=== PATIENT | female | born 1970 | race Caucasian/White ===

== ENCOUNTER → 2017-01-28 | Outpatient (CLI) | payer OTHER ==
--- NOTE | 2017-02-01 08:20 | MM ---
Reason for exam: screening (asymptomatic). Last mammogram was performed 1 year ago. History: Patient had first child at age 29. Took hormonal contraceptives for 16 years beginning at age 19. Physical Findings: A clinical breast exam by your physician is recommended on an annual basis and results should be correlated with mammographic findings. MG Screening Mammo w CAD Bilateral CC and MLO view(s) were taken. Prior study comparison: January 27, 2016, bilateral MG screening mammo w CAD. January 24, 2015, bilateral MG screening mammo w CAD. There are scattered fibroglandular densities. Stable distortion in the left outer region. No significant changes when compared with prior studies. ASSESSMENT: Benign, BI-RAD 2 RECOMMENDATION: Routine screening mammogram of both breasts in 1 year.
== END ==
LOC: RADMAMWWP 08:02
PROVIDERS: ATTEND Family Medicine
DX: Z12.31 Encounter for screening mammogram for malignant neoplasm of breast (principal)

== ENCOUNTER 2018-01-22 16:54 | Emergency (ER) | payer OTHER ==
--- NOTE | 2018-01-22 17:07 | ED ---
Psych HPI - General Source: patient, police, EMS, RN notes reviewed Mode of arrival: EMS - History of Present Illness MD Complaint: suicidal ideation, feels depressed <Tigre Rojas - Last Filed: 01/23/18 00:03> <Aimee Arriaga - Last Filed: 01/23/18 05:32> - General Stated Complaint: Psych Eval Time Seen by Provider: 01/22/18 16:54 - History of Present Illness Initial Comments: This is a 46-year-old female was brought in by EMS in police custody with complaints of depression and suicidal thoughts and ideation. 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 Officers that she wanted to say goodbye before she went on her vacation but she would never come back again. She did voice apparent suicidal thoughts and ideation. She was brought here for evaluation. Patient is not very forthcoming with information I did obtain information from 2 police officers and some from the patient's . No reports of alcohol or drug use no other medical problems reported patient did have abrasions on her right forearm she states she put their 2 weeks ago her last tetanus shot was a week ago. (Tigre Rojas) - Related Data Home Medications Medication Instructions Recorded Confirmed Citalopram Hydrobromide [CeleXA] 20 mg PO HS 01/22/18 01/22/18 Levothyroxine Sodium [Synthroid] 75 mcg PO HS 01/22/18 01/22/18 Allergies Allergy/AdvReac Type Severity Reaction Status Date / Time prednisone Allergy Rash/Hives Verified 01/22/18 17:24 Review of Systems ROS Other: All systems not noted in ROS Statement are negative. <Tigre Rojas - Last Filed: 01/23/18 00:03> ROS Other: All systems not noted in ROS Statement are negative. <Aimee Arriaga - Last Filed: 01/23/18 05:32> ROS Statement: Those systems with pertinent positive or pertinent negative responses have been documented in the HPI. General Exam General appearance: alert, in no apparent distress Head exam: Present: atraumatic, normocephalic, normal inspection Eye exam: Present: normal appearance, PERRL, EOMI. Absent: scleral icterus, conjunctival injection, periorbital swelling ENT exam: Present: normal exam, mucous membranes moist Neck exam: Present: normal inspection. Absent: tenderness, meningismus, lymphadenopathy Respiratory exam: Present: normal lung sounds bilaterally. Absent: respiratory distress, wheezes, rales, rhonchi, stridor Cardiovascular Exam: Present: regular rate, normal rhythm, normal heart sounds. Absent: systolic murmur, diastolic murmur, rubs, gallop, clicks GI/Abdominal exam: Present: soft, normal bowel sounds. Absent: distended, tenderness, guarding, rebound, rigid Extremities exam: Present: normal inspection, full ROM, normal capillary refill , other (Well-healed linear abrasions to the right volar forearm no evidence of infection. They appear to be healing well). Absent: tenderness, pedal edema, joint swelling, calf tenderness Back exam: Present: normal inspection Neurological exam: Present: alert, oriented X3, CN II-XII intact Psychiatric exam: Present: normal mood, depressed, suicidal ideation Skin exam: Present: warm, dry, intact, normal color. Absent: rash <Tigre Rojas - Last Filed: 01/23/18 00:03> <Aimee Arriaga - Last Filed: 01/23/18 05:32> - General Exam Comments Initial Comments: This a well-developed well-nourished awake alert oriented 3 female (Tigre Rojas) Course <Tigre Rojas - Last Filed: 01/23/18 00:03> <Aimee Arriaga - Last Filed: 01/23/18 05:32> Vital Signs 01/22/18 01/23/18 17:03 03:40 Temperature 99 F Pulse Rate 78 82 Respiratory 16 18 Rate Blood Pressure 141/99 131/84 O2 Sat by Pulse 100 98 Oximetry - Reevaluation(s) Reevaluation #1: 01/23/18 00:03 The patient's care will be endorsed to Dr. Arriaga at our shift change (Tigre Rojas) Medical Decision Making - Lab Data Result diagrams: 01/22/18 19:45 01/22/18 19:45 <Tigre Rojas - Last Filed: 01/23/18 00:03> - Lab Data Result diagrams: 01/22/18 19:45 01/22/18 19:45 <Aimee Arriaga - Last Filed: 01/23/18 05:32> - Medical Decision Making Patient care was signed out to me by Dr. Rojas, patient under a psychiatric evaluation for possible suicidal thoughts. Review the patient chart reveals that she does have just of of urinary tract infection. Patient does endorse some dysuria, she denies any possibility of sexually transmitted infection and does not want any further evaluation or pelvic exam. Patient does not have an IV in but is otherwise stable and I feel she is appropriate for treatment oral antibiotics. Keflex will be ordered. (Aimee Arriaga) - Lab Data Lab Results 01/22/18 01/22/18 01/22/18 Range/Units 19:45 19:45 20:40 WBC 14.6 H (3.8-10.6) k/uL RBC 5.14 (3.80-5.40) m/uL Hgb 13.9 (11.4-16.0) gm/dL Hct 42.5 (34.0-46.0) % MCV 82.6 (80.0-100.0) fL MCH 27.1 (25.0-35.0) pg MCHC 32.8 (31.0-37.0) g/dL RDW 13.1 (11.5-15.5) % Plt Count 401 (150-450) k/uL Neutrophils % 85 % Lymphocytes % 9 % Monocytes % 5 % Eosinophils % 0 % Basophils % 0 % Neutrophils # 12.3 H (1.3-7.7) k/uL Lymphocytes # 1.3 (1.0-4.8) k/uL Monocytes # 0.8 (0-1.0) k/uL Eosinophils # 0.0 (0-0.7) k/uL Basophils # 0.0 (0-0.2) k/uL Sodium 139 (137-145) mmol/L Potassium 3.9 (3.5-5.1) mmol/L Chloride 104 (98-107) mmol/L Carbon Dioxide 24 (22-30) mmol/L Anion Gap 11 mmol/L BUN 10 (7-17) mg/dL Creatinine 0.82 (0.52-1.04) mg/dL Est GFR (CKD-EPI)AfAm >90 (>60 ml/min/1.73 sqM) Est GFR (CKD-EPI)NonAf 84 (>60 ml/min/1.73 sqM) Glucose 99 (74-99) mg/dL Calcium 9.9 (8.4-10.2) mg/dL Total Bilirubin 0.7 (0.2-1.3) mg/dL AST 19 (14-36) U/L ALT 28 (9-52) U/L Alkaline Phosphatase 91 (38-126) U/L Total Protein 7.7 (6.3-8.2) g/dL Albumin 4.7 (3.5-5.0) g/dL Urine Color Urine Appearance (Clear) Urine pH (5.0-8.0) Ur Specific [place] (1.001-1.035) Urine Protein (Negative) Urine Glucose (UA) (Negative) Urine Ketones (Negative) Urine Blood (Negative) Urine Nitrite (Negative) Urine Bilirubin (Negative) Urine Urobilinogen (<2.0) mg/dL Ur Leukocyte Esterase (Negative) Urine RBC (0-5) /hpf Urine WBC (0-5) /hpf Ur Squamous Epith Cells (0-4) /hpf Amorphous Sediment (None) /hpf Urine Bacteria (None) /hpf Urine Mucus (None) /hpf Urine HCG, Qual (Not Detectd) Urine Opiates Screen Not Detected (NotDetected) Ur Oxycodone Screen Not Detected (NotDetected) Urine Methadone Screen Not Detected (NotDetected) Ur Propoxyphene Screen Not Detected (NotDetected) Ur Barbiturates Screen Not Detected (NotDetected) U Tricyclic Antidepress Not Detected (NotDetected) Ur Phencyclidine Scrn Not Detected (NotDetected) Ur Amphetamines Screen Not Detected (NotDetected) U Methamphetamines Scrn Not Detected (NotDetected) U Benzodiazepines Scrn Not Detected (NotDetected) Urine Cocaine Screen Not Detected (NotDetected) U Marijuana (THC) Screen Not Detected (NotDetected) 01/22/18 01/22/18 Range/Units 20:40 20:40 WBC (3.8-10.6) k/uL RBC (3.80-5.40) m/uL Hgb (11.4-16.0) gm/dL Hct (34.0-46.0) % MCV (80.0-100.0) fL MCH (25.0-35.0) pg MCHC (31.0-37.0) g/dL RDW (11.5-15.5) % Plt Count (150-450) k/uL Neutrophils % % Lymphocytes % % Monocytes % % Eosinophils % % Basophils % % Neutrophils # (1.3-7.7) k/uL Lymphocytes # (1.0-4.8) k/uL Monocytes # (0-1.0) k/uL Eosinophils # (0-0.7) k/uL Basophils # (0-0.2) k/uL Sodium (137-145) mmol/L Potassium (3.5-5.1) mmol/L Chloride (98-107) mmol/L Carbon Dioxide (22-30) mmol/L Anion Gap mmol/L BUN (7-17) mg/dL Creatinine (0.52-1.04) mg/dL Est GFR (CKD-EPI)AfAm (>60 ml/min/1.73 sqM) Est GFR (CKD-EPI)NonAf (>60 ml/min/1.73 sqM) Glucose (74-99) mg/dL Calcium (8.4-10.2) mg/dL Total Bilirubin (0.2-1.3) mg/dL AST (14-36) U/L ALT (9-52) U/L Alkaline Phosphatase (38-126) U/L Total Protein (6.3-8.2) g/dL Albumin (3.5-5.0) g/dL Urine Color Light Yellow Urine Appearance Cloudy H (Clear) Urine pH 6.5 (5.0-8.0) Ur Specific [place] 1.005 (1.001-1.035) Urine Protein Negative (Negative) Urine Glucose (UA) Negative (Negative) Urine Ketones 1+ H (Negative) Urine Blood Negative (Negative) Urine Nitrite Negative (Negative) Urine Bilirubin Negative (Negative) Urine Urobilinogen <2.0 (<2.0) mg/dL Ur Leukocyte Esterase Large H (Negative) Urine RBC 2 (0-5) /hpf Urine WBC 21 H (0-5) /hpf Ur Squamous Epith Cells 2 (0-4) /hpf Amorphous Sediment Rare H (None) /hpf Urine Bacteria Many H (None) /hpf Urine Mucus Rare H (None) /hpf Urine HCG, Qual Not Detected (Not Detectd) Urine Opiates Screen (NotDetected) Ur Oxycodone Screen (NotDetected) Urine Methadone Screen (NotDetected) Ur Propoxyphene Screen (NotDetected) Ur Barbiturates Screen (NotDetected) U Tricyclic Antidepress (NotDetected) Ur Phencyclidine Scrn (NotDetected) Ur Amphetamines Screen (NotDetected) U Methamphetamines Scrn (NotDetected) U Benzodiazepines Scrn (NotDetected) Urine Cocaine Screen (NotDetected) U Marijuana (THC) Screen (NotDetected) Disposition <Tigre Rojas - Last Filed: 01/23/18 00:03> Is patient prescribed a controlled substance at d/c from ED?: No <Aimee Arriaga - Last Filed: 01/23/18 05:32> Clinical Impression: Depression, Suicidal ideation Disposition: TRANSFER TO PSYCH HOSP/UNIT Instructions: Urinary Tract Infection in Women (ED) Referrals: None,Stated [Primary Care Provider] - 1-2 days
[2018-01-22 20:07] LABS: Basophils % (A) 0 %; Eosinophils % (A) 0 %; HCT 42.5 % (34.0-46.0); HGB 13.9 gm/dL (11.4-16.0); Lymphocytes # (A) 1.3 k/uL (1.0-4.8); Lymphocytes % (A) 9 %; MCH 27.1 pg (25.0-35.0); MCHC 32.8 g/dL (31.0-37.0); MCV 82.6 fL (80.0-100.0); Mean Platelet Volume 6.3; Monocytes # (A) 0.8 k/uL (0-1.0); Monocytes % (A) 5 %; Neutrophils # (A) 12.3 k/uL (1.3-7.7); Neutrophils % (A) 85 %; Platelet Count 401 k/uL (150-450); RBC 5.14 m/uL (3.80-5.40); RDW 13.1 % (11.5-15.5); WBC 14.6 k/uL (3.8-10.6)
[2018-01-22 20:17] LABS: ALT 28 U/L (9-52); AST 19 U/L (14-36); Albumin 4.7 g/dL (3.5-5.0); Alkaline Phosphatase 91 U/L (38-126); Anion Gap 11 mmol/L; Blood Urea Nitrogen 10 mg/dL (7-17); Calcium 9.9 mg/dL (8.4-10.2); Carbon Dioxide 24 mmol/L (22-30); Chloride 104 mmol/L (98-107); Glucose 99 mg/dL (74-99); Potassium 3.9 mmol/L (3.5-5.1); Sodium 139 mmol/L (137-145); Total Bilirubin 0.7 mg/dL (0.2-1.3); Total Protein 7.7 g/dL (6.3-8.2)
[2018-01-22 20:54] LABS: Amorphous Sediment,Urine Rare /hpf; Appearance,Urine Cloudy (Clear); Bacteria,Urine Many /hpf; Bilirubin,Urine Negative (Negative); Blood,Urine Negative (Negative); Color,Urine Light Yellow; Glucose,Urine (UA) Negative (Negative); Ketones,Urine 1+ (Negative); Leukocyte Esterase,Urine Large (Negative); Mucus,Urine Rare /hpf; Nitrite,Urine Negative (Negative); PH, Urine 6.5 (5.0-8.0); Protein,Urine Negative (Negative); RBC,Urine 2 /hpf (0-5); Specific Gravity,Urine 1.005 (1.001-1.035); Squamous Epithelial Cell,Urine 2 /hpf (0-4); Urobilinogen,Urine <2.0 mg/dL (<2.0); WBC,Urine 21 /hpf (0-5)
[2018-01-22 21:03] LABS: Amphetamine Screen,Urine Not Detected (NotDetected); Barbiturate Screen,Urine Not Detected (NotDetected); Benzodiazepines Screen,Urine Not Detected (NotDetected); Cocaine Screen,Urine Not Detected (NotDetected); Methadone Screen, Urine Not Detected (NotDetected); Opiate Screen,Urine Not Detected (NotDetected); Oxycodone Screen, Urine Not Detected (NotDetected); Phencyclidine Screen,Urine Not Detected (NotDetected); Tricyclic Antidepressant,Urine Not Detected (NotDetected); Urn Cannabinoid Scrn Not Detected (NotDetected)
[2018-01-23 03:40] VITALS: RESP 18
[2018-01-23] MEDS ORDERED: ACETAMINOPHEN TAB 325 MG TAB PO STA (03:42)
[2018-01-23] MEDS ORDERED: cefTRIAXone IN SWFI 1,000 MG/10 ML SYRINGE IVP STA (03:42)
[2018-01-23] MEDS ORDERED: CEPHALEXIN 500MG STARTER PACK 4 CAP BTL PO STA (03:51)
[2018-01-23 08:25] VITALS: BP 124/76; PULSE 80; TEMP 98
== END 2018-01-23 08:25 ==
LOC: EC 16:54
DX: F32.9 Major depressive disorder, single episode, unspecified (principal); R45.851 Suicidal ideations; N39.0 Urinary tract infection, site not specified; Z79.899 Other long term (current) drug therapy; Z88.8 Allergy status to other drugs, medicaments and biological substances
CPT/HCPCS: 36415; 80053; 80306; 81001; 81025; 82075; 85025; 87086; 99285

== ENCOUNTER 2018-05-21 18:21 | Inpatient (IN) | payer OTHER ==
--- NOTE | 2018-05-21 18:44 | ED ---
Psych HPI <VitabimalTigre Nisha - Last Filed: 05/21/18 21:32> - General Source: patient, family Mode of arrival: ambulatory - History of Present Illness MD Complaint: suicidal ideation, feels depressed -: hour(s) Associated Psychiatric Symptoms: depression, suicidal ideation History of same: Yes Quality: getting worse Improves With: none Worsens With: none Context: recent alcohol abuse Associated Symptoms: denies other symptoms Treatments Prior to Arrival: none If Self Harm: admits thoughts of self harm <Rudy Camacho - Last Filed: 05/23/18 00:05> - General Chief Complaint: Psychiatric Symptoms Stated Complaint: mental health Time Seen by Provider: 05/21/18 18:43 - History of Present Illness Initial Comments: This is a 47-year-old female the ER for evaluation, patient presented ER for evaluation of psychiatric illness, patient is positive suicidal depression ( Rudy Camacho) - Related Data Home Medications Medication Instructions Recorded Confirmed Citalopram Hydrobromide [CeleXA] 20 mg PO HS 01/22/18 01/22/18 Levothyroxine Sodium [Synthroid] 75 mcg PO HS 01/22/18 01/22/18 Allergies Allergy/AdvReac Type Severity Reaction Status Date / Time prednisone Allergy Rash/Hives Verified 05/21/18 22:26 Review of Systems ROS Other: All systems not noted in ROS Statement are negative. <VitablancheTigre Nisha - Last Filed: 05/21/18 21:32> ROS Other: All systems not noted in ROS Statement are negative. <Rudy Camacho - Last Filed: 05/23/18 00:05> ROS Statement: Those systems with pertinent positive or pertinent negative responses have been documented in the HPI. Past Medical History Past Medical History: Thyroid Disorder Additional Past Medical History / Comment(s): hypoglycemia, IBS History of Any Multi-Drug Resistant Organisms: None Reported Past Surgical History: Section Past Psychological History: Depression Smoking Status: Never smoker Past Alcohol Use History: Occasional Past Drug Use History: None Reported - Past Family History Father Family Medical History: Coronary Artery Disease (CAD) <Rudy Caamcho - Last Filed: 05/23/18 00:05> General Exam Limitations: no limitations General appearance: alert, in no apparent distress Head exam: Present: atraumatic, normocephalic, normal inspection Eye exam: Present: normal appearance, PERRL, EOMI. Absent: scleral icterus, conjunctival injection, periorbital swelling ENT exam: Present: normal exam, mucous membranes moist Neck exam: Present: normal inspection. Absent: tenderness, meningismus, lymphadenopathy Respiratory exam: Present: normal lung sounds bilaterally. Absent: respiratory distress, wheezes, rales, rhonchi, stridor Cardiovascular Exam: Present: regular rate, normal rhythm, normal heart sounds. Absent: systolic murmur, diastolic murmur, rubs, gallop, clicks GI/Abdominal exam: Present: soft, normal bowel sounds. Absent: distended, tenderness, guarding, rebound, rigid Extremities exam: Present: normal inspection, full ROM, normal capillary refill. Absent: tenderness, pedal edema, joint swelling, calf tenderness Back exam: Present: normal inspection Neurological exam: Present: alert, oriented X3, CN II-XII intact Psychiatric exam: Present: normal affect, normal mood Skin exam: Present: warm, dry, intact, normal color. Absent: rash <Rudy Camacho - Last Filed: 05/23/18 00:05> Course <Tigre Almeida - Last Filed: 05/21/18 21:32> <Rudy Camacho - Last Filed: 05/23/18 00:05> Vital Signs 05/21/18 18:28 Temperature 98.5 F Pulse Rate 85 Respiratory 20 Rate Blood Pressure 138/95 O2 Sat by Pulse 97 Oximetry - Reevaluation(s) Reevaluation #1: 05/21/18 20:06 medically clear for psychiatric evaluation (Rudy Camacho) Medical Decision Making <Tigre Almeida - Last Filed: 05/21/18 21:32> - Lab Data Result diagrams: 05/22/18 07:53 05/22/18 07:53 <Rudy Camacho - Last Filed: 05/23/18 00:05> - Medical Decision Making 47-year-old female, care signed out at shift change awaiting EPS evaluation. Patient presented with chief complaints of depression and suicidal ideation. She was medically cleared by the previous physician and signed out at shift change awaiting final psychiatric disposition. It was recommended the patient be admitted for further psychiatric treatment and evaluation. She will be admitted to this institution. (Tigre Almeida) - Lab Data Lab Results 05/21/18 05/21/18 Range/Units 21:00 21:20 Urine Color Light Yellow Urine Appearance Clear (Clear) Urine pH 6.5 (5.0-8.0) Ur Specific [place] 1.005 (1.001-1.035) Urine Protein Negative (Negative) Urine Glucose (UA) Negative (Negative) Urine Ketones Negative (Negative) Urine Blood Negative (Negative) Urine Nitrite Negative (Negative) Urine Bilirubin Negative (Negative) Urine Urobilinogen <2.0 (<2.0) mg/dL Ur Leukocyte Esterase Negative (Negative) Urine HCG, Qual Not Detected (Not Detectd) Urine Opiates Screen Not Detected (NotDetected) Ur Oxycodone Screen Not Detected (NotDetected) Urine Methadone Screen Not Detected (NotDetected) Ur Propoxyphene Screen Not Detected (NotDetected) Ur Barbiturates Screen Not Detected (NotDetected) U Tricyclic Antidepress Not Detected (NotDetected) Ur Phencyclidine Scrn Not Detected (NotDetected) Ur Amphetamines Screen Not Detected (NotDetected) U Methamphetamines Scrn Not Detected (NotDetected) U Benzodiazepines Scrn Not Detected (NotDetected) Urine Cocaine Screen Not Detected (NotDetected) U Marijuana (THC) Screen Not Detected (NotDetected) Disposition Is patient prescribed a controlled substance at d/c from ED?: No Decision to Admit Reason: Admit from EC Decision Date: 05/21/18 Decision Time: 21:33 <Tigre Almeida - Last Filed: 05/21/18 21:32> <Rudy Camacho - Last Filed: 05/23/18 00:05> Clinical Impression: Depression, Suicidal ideation Disposition: ADMITTED IP TO THIS HOSP Condition: Stable
[2018-05-21 21:45] LABS: Appearance,Urine Clear (Clear); Bilirubin,Urine Negative (Negative); Blood,Urine Negative (Negative); Color,Urine Light Yellow; Glucose,Urine (UA) Negative (Negative); Ketones,Urine Negative (Negative); Leukocyte Esterase,Urine Negative (Negative); Nitrite,Urine Negative (Negative); PH, Urine 6.5 (5.0-8.0); Protein,Urine Negative (Negative); Specific Gravity,Urine 1.005 (1.001-1.035); Urobilinogen,Urine <2.0 mg/dL (<2.0)
[2018-05-21] MEDS ORDERED: MAG HYDROX/AL HYDROX/SIMETH 30 ML CUP PO PRN (22:01)
[2018-05-21] MEDS ORDERED: MAGNESIUM HYDROXIDE 2,400 MG/10 ML CUP PO PRN (22:01)
[2018-05-21] MEDS ORDERED: ACETAMINOPHEN TAB 325 MG TAB PO PRN (22:01)
[2018-05-21] MEDS ORDERED: LORazepam 1 MG TAB PO PRN (22:01)
[2018-05-21 22:06] LABS: Amphetamine Screen,Urine Not Detected (NotDetected); Barbiturate Screen,Urine Not Detected (NotDetected); Benzodiazepines Screen,Urine Not Detected (NotDetected); Cocaine Screen,Urine Not Detected (NotDetected); Methadone Screen, Urine Not Detected (NotDetected); Opiate Screen,Urine Not Detected (NotDetected); Oxycodone Screen, Urine Not Detected (NotDetected); Phencyclidine Screen,Urine Not Detected (NotDetected); Tricyclic Antidepressant,Urine Not Detected (NotDetected); Urn Cannabinoid Scrn Not Detected (NotDetected)
[2018-05-21 23:14] VITALS: BMI 35.2
[2018-05-22 08:24] LABS: Basophils # (A) 0.1 k/uL (0-0.2); Basophils % (A) 1 %; Eosinophils # (A) 0.3 k/uL (0-0.7); Eosinophils % (A) 4 %; HCT 41.1 % (34.0-46.0); Lymphocytes # (A) 1.7 k/uL (1.0-4.8); Lymphocytes % (A) 22 %; MCH 26.7 pg (25.0-35.0); MCHC 31.6 g/dL (31.0-37.0); MCV 84.3 fL (80.0-100.0); Mean Platelet Volume 6.2; Monocytes # (A) 0.5 k/uL (0-1.0); Monocytes % (A) 6 %; Neutrophils # (A) 4.8 k/uL (1.3-7.7); Neutrophils % (A) 65 %; Platelet Count 435 k/uL (150-450); RBC 4.88 m/uL (3.80-5.40); RDW 13.3 % (11.5-15.5); WBC 7.5 k/uL (3.8-10.6)
[2018-05-22 08:35] LABS: ALT 20 U/L (9-52); AST 19 U/L (14-36); Albumin 4.3 g/dL (3.5-5.0); Alkaline Phosphatase 72 U/L (38-126); Anion Gap 7 mmol/L; Blood Urea Nitrogen 10 mg/dL (7-17); Calcium 9.9 mg/dL (8.4-10.2); Carbon Dioxide 31 mmol/L (22-30); Chloride 101 mmol/L (98-107); Cholesterol 222 mg/dL (<200); Glucose 95 mg/dL (74-99); HDL Cholesterol 71 mg/dL (40-60); LDL Cholesterol,Calculated 129 mg/dL (0-99); Potassium 4.8 mmol/L (3.5-5.1); Sodium 139 mmol/L (137-145); Total Bilirubin 1.2 mg/dL (0.2-1.3); Total Protein 7.7 g/dL (6.3-8.2); Triglycerides 112 mg/dL (<150)
[2018-05-22] MEDS: NICOTINE 14MG/24HR PATCH TRANSDERM SCH (08:41)
--- NOTE | 2018-05-22 12:08 | P.CONS ---
History of Present Illness - History of Present Illness This is a pleasant 47 years old female with past medical history of hypothyroidism and depression. who presents because of depression and suicidal ideation. We will consulted for medical management. She denies chest pain or dyspnea. No change in urine or bowel habits. No fever. No nausea vomiting. She is denies h/o smoking to me . Occasional alcohol no also tracks. Patient states that she has 3-4 scratching crisostomo on her right forearm ventral side. No redness or swelling or tenderness around it. No lymphadenopathy. Review of Systems CONSTITUTIONAL: No fever, no malaise, no fatigue. HEENT: No recent visual problems or hearing problems. Denied any sore throat. CARDIOVASCULAR: No orthopnea, PND, no palpitations, no syncope. PULMONARY: No shortness of breath, no cough, no hemoptysis. GASTROINTESTINAL: No diarrhea, no nausea, no vomiting, no abdominal pain. Normoactive bowel sounds. NEUROLOGICAL: No headaches, no weakness, no numbness. HEMATOLOGICAL: Denies any bleeding or petechiae. GENITOURINARY: Denies any burning micturition, frequency, or urgency. MUSCULOSKELETAL/RHEUMATOLOGICAL: Denies any joint pain, swelling, or any muscle pain. ENDOCRINE: Denies any polyuria or polydipsia. Past Medical History Past Medical History: Thyroid Disorder Additional Past Medical History / Comment(s): hypoglycemia, IBS History of Any Multi-Drug Resistant Organisms: None Reported Past Surgical History: Section Past Anesthesia/Blood Transfusion Reactions: No Reported Reaction Past Psychological History: Depression Smoking Status: Never smoker Past Alcohol Use History: None Reported, Occasional Past Drug Use History: None Reported - Past Family History Father Family Medical History: Coronary Artery Disease (CAD) Medications and Allergies Home Medications Medication Instructions Recorded Confirmed Type Citalopram Hydrobromide [CeleXA] 20 mg PO HS 01/22/18 01/22/18 History Levothyroxine Sodium [Synthroid] 75 mcg PO HS 01/22/18 01/22/18 History Allergies Allergy/AdvReac Type Severity Reaction Status Date / Time prednisone Allergy Rash/Hives Verified 05/21/18 22:26 Physical Exam Vitals: Vital Signs Temp Pulse Pulse Resp BP BP Pulse Ox 05/22/18 06:41 97.9 F 88 16 130/86 05/21/18 22:11 97.9 F 68 18 142/99 98 05/21/18 18:28 98.5 F 85 20 138/95 97 Intake and Output 05/21/18 05/22/18 05/22/18 22:59 06:59 14:59 Other: Weight 87.4 kg GENERAL: The patient is alert and oriented x3, not in any acute distress. Well developed, well nourished. HEENT: Pupils are round and equally reacting to light. EOMI. No scleral icterus. No conjunctival pallor. Normocephalic, atraumatic. No pharyngeal erythema. No thyromegaly. CARDIOVASCULAR: S1 and S2 present. No murmurs, rubs, or gallops. PULMONARY: Chest is clear to auscultation, no wheezing or crackles. ABDOMEN: Soft, nontender, nondistended, normoactive bowel sounds. No palpable organomegaly. MUSCULOSKELETAL: No joint swelling or deformity. -EXTREMITIES: No cyanosis, clubbing, or pedal edema. 3-4 scratching crisostomo on her right forearm NEUROLOGICAL: Gross neurological examination did not reveal any focal deficits. SKIN: No rashes. Results CBC & Chem 7: 05/22/18 07:53 05/22/18 07:53 Labs: Abnormal Lab Results - Last 24 Hours (Table) 05/22/18 Range/Units 07:53 Carbon Dioxide 31 H (22-30) mmol/L Cholesterol 222 H (<200) mg/dL LDL Cholesterol, Calc 129 H (0-99) mg/dL HDL Cholesterol 71 H (40-60) mg/dL Assessment and Plan Assessment: -Hyperlipidemia, new. we'll start the patient on statin -3-4 self-inflicted cigarette traction crisostomo on her right arm, no signs symptoms of cellulitis or open wound. Continue with local treatment. -History of hypothyroidism: Continue with levothyroxine -Depression and psychiatric illnesses: Management as per the psychiatric primary team -GI and DVT prophylaxis. No need for heparin as patient is mobile. Prognosis is guarded Patient was instructed to follow up with her PCP within one week after discharge and she agrees. Thank you for consulting us. We will continue to see the patient on as needed basis. Please feel free to contact us for any further question or clarification. Plan: This is a pleasant 47 years old female who presents because of depression and suicidal ideation. Labs and medication were reviewed.. Continue same treatment. Continue with symptomatic treatment. Resume home medication. Monitor lytes and vitals. DVT and GI prophylaxis. Further recommendations of the clinical course of the patient DVT prophylaxis: Subcutaneous heparin GI Prophylaxis: Pepcid PT/OT: Pending Prognosis is guarded
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
[2018-05-22] MEDS: ATORVASTATIN 10 MG TAB PO SCH (20:43)
[2018-05-22] MEDS: LEVOTHYROXINE 75 MCG TAB PO SCH (20:43)
[2018-05-22] MEDS ORDERED: CITALOPRAM HYDROBROMIDE 20 MG TAB PO SCH (21:00)
[2018-05-23] MEDS: buPROPion XL 150 MG TAB.ER.24H PO SCH (08:17)
[2018-05-23] MEDS: CITALOPRAM HYDROBROMIDE 20 MG TAB PO SCH (08:17)
[2018-05-23] MEDS: NICOTINE 14MG/24HR PATCH TRANSDERM SCH (08:17)
[2018-05-23 10:16] LABS: Hemoglobin A1C 5.3 % (4.0-6.0)
--- NOTE | 2018-05-23 12:33 | P.HP ---
Psychiatric H&P - . H&P Date: 05/23/18 History & Physical: Allergies Allergy/AdvReac Type Severity Reaction Status Date / Time prednisone Allergy Rash/Hives Verified 05/21/18 22:26 Vital Signs Temp 97.6 F 05/23/18 06:40 Pulse 75 05/23/18 06:40 Resp 16 05/23/18 06:40 BP 118/75 05/23/18 06:40 Pulse Ox 98 05/21/18 22:11 Intake & Output 05/22/18 05/23/18 05/23/18 18:59 06:59 18:59 Weight 87.6 kg Laboratory Last Values WBC 7.5 k/uL (3.8-10.6) 05/22/18 07:53 RBC 4.88 m/uL (3.80-5.40) 05/22/18 07:53 Hgb 13.0 gm/dL (11.4-16.0) 05/22/18 07:53 Hct 41.1 % (34.0-46.0) 05/22/18 07:53 MCV 84.3 fL (80.0-100.0) 05/22/18 07:53 MCH 26.7 pg (25.0-35.0) 05/22/18 07:53 MCHC 31.6 g/dL (31.0-37.0) 05/22/18 07:53 RDW 13.3 % (11.5-15.5) 05/22/18 07:53 Plt Count 435 k/uL (150-450) 05/22/18 07:53 Neutrophils % 65 % 05/22/18 07:53 Lymphocytes % 22 % 05/22/18 07:53 Monocytes % 6 % 05/22/18 07:53 Eosinophils % 4 % 05/22/18 07:53 Basophils % 1 % 05/22/18 07:53 Neutrophils # 4.8 k/uL (1.3-7.7) 05/22/18 07:53 Lymphocytes # 1.7 k/uL (1.0-4.8) 05/22/18 07:53 Monocytes # 0.5 k/uL (0-1.0) 05/22/18 07:53 Eosinophils # 0.3 k/uL (0-0.7) 05/22/18 07:53 Basophils # 0.1 k/uL (0-0.2) 05/22/18 07:53 Sodium 139 mmol/L (137-145) 05/22/18 07:53 Potassium 4.8 mmol/L (3.5-5.1) 05/22/18 07:53 Chloride 101 mmol/L (98-107) 05/22/18 07:53 Carbon Dioxide 31 mmol/L (22-30) H 05/22/18 07:53 Anion Gap 7 mmol/L 05/22/18 07:53 BUN 10 mg/dL (7-17) 05/22/18 07:53 Creatinine 0.83 mg/dL (0.52-1.04) 05/22/18 07:53 Est GFR (CKD-EPI)AfAm >90 (>60 ml/min/1.73 sqM) 05/22/18 07:53 Est GFR (CKD-EPI)NonAf 84 (>60 ml/min/1.73 sqM) 05/22/18 07:53 Glucose 95 mg/dL (74-99) 05/22/18 07:[address] Glu mg/dL 105 05/22/18 07:53 Hemoglobin A1c 5.3 % (4.0-6.0) 05/22/18 07:53 Calcium 9.9 mg/dL (8.4-10.2) 05/22/18 07:53 Total Bilirubin 1.2 mg/dL (0.2-1.3) 05/22/18 07:53 AST 19 U/L (14-36) 05/22/18 07:53 ALT 20 U/L (9-52) 05/22/18 07:53 Alkaline Phosphatase 72 U/L (38-126) 05/22/18 07:53 Total Protein 7.7 g/dL (6.3-8.2) 05/22/18 07:53 Albumin 4.3 g/dL (3.5-5.0) 05/22/18 07:53 Triglycerides 112 mg/dL (<150) 05/22/18 07:53 Cholesterol 222 mg/dL (<200) H 05/22/18 07:53 LDL Cholesterol, Calc 129 mg/dL (0-99) H 05/22/18 07:53 HDL Cholesterol 71 mg/dL (40-60) H 05/22/18 07:53 TSH 3.300 mIU/L (0.465-4.680) 05/22/18 07:53 Urine Color Light Yellow 05/21/18 21:20 Urine Appearance Clear (Clear) 05/21/18 21:20 Urine pH 6.5 (5.0-8.0) 05/21/18 21:20 Ur Specific [place] 1.005 (1.001-1.035) 05/21/18 21:20 Urine Protein Negative (Negative) 05/21/18 21:20 Urine Glucose (UA) Negative (Negative) 05/21/18 21:20 Urine Ketones Negative (Negative) 05/21/18 21:20 Urine Blood Negative (Negative) 05/21/18 21:20 Urine Nitrite Negative (Negative) 05/21/18 21:20 Urine Bilirubin Negative (Negative) 05/21/18 21:20 Urine Urobilinogen <2.0 mg/dL (<2.0) 05/21/18 21:20 Ur Leukocyte Esterase Negative (Negative) 05/21/18 21:20 Urine HCG, Qual Not Detected (Not Detectd) 05/21/18 21:00 Urine Opiates Screen Not Detected (NotDetected) 05/21/18 21:20 Ur Oxycodone Screen Not Detected (NotDetected) 05/21/18 21:20 Urine Methadone Screen Not Detected (NotDetected) 05/21/18 21:20 Ur Propoxyphene Screen Not Detected (NotDetected) 05/21/18 21:20 Ur Barbiturates Screen Not Detected (NotDetected) 05/21/18 21:20 U Tricyclic Antidepress Not Detected (NotDetected) 05/21/18 21:20 Ur Phencyclidine Scrn Not Detected (NotDetected) 05/21/18 21:20 Ur Amphetamines Screen Not Detected (NotDetected) 05/21/18 21:20 U Methamphetamines Scrn Not Detected (NotDetected) 05/21/18 21:20 U Benzodiazepines Scrn Not Detected (NotDetected) 05/21/18 21:20 Urine Cocaine Screen Not Detected (NotDetected) 05/21/18 21:20 U Marijuana (THC) Screen Not Detected (NotDetected) 05/21/18 21:20 Assessment and Plan (1) Major depressive disorder, recurrent episode with mixed features Narrative/Plan: HPI: This is a pleasant 47 years old female with past medical history of hypothyroidism and depression. who presents because of depression and suicidal ideation. We will consulted for medical management. She denies chest pain or dyspnea. No change in urine or bowel habits. No fever. No nausea vomiting. She is denies h/o smoking to me . Occasional alcohol no also tracks. Patient states that she has 3-4 scratching crisostomo on her right forearm ventral side due to frustration. No redness or swelling or tenderness around it. No lymphadenopathy. 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 She chose reassignment. She does not feel this was fair and gets quite tearful and emotional regarding this set of circumstances. Past Medical History Past Medical History: Thyroid Disorder Additional Past Medical History / Comment(s): hypoglycemia, IBS History of Any Multi-Drug Resistant Organisms: None Reported Past Surgical History: Section Past Anesthesia/Blood Transfusion Reactions: No Reported Reaction Past Psychological History: Depression Smoking Status: Never smoker Past Alcohol Use History: None Reported, Occasional Past Drug Use History: None Reported - Past Family History Father Family Medical History: Coronary Artery Disease (CAD) Medications and Allergies Home Medications Medication Instructions Recorded Confirmed Type Citalopram Hydrobromide [CeleXA] 20 mg PO HS 01/22/18 01/22/18 History Levothyroxine Sodium [Synthroid] 75 mcg PO HS 01/22/18 01/22/18 History Allergies Allergy/AdvReac Type Severity Reaction Status Date / Time prednisone Allergy Rash/Hives Verified 05/21/18 22:26 Musculoskeletal Examination - Abnormal/Involuntary Movements: [none] Strength: [greater than antigravity (greater than/equal to 3/5) in all extremities:] Muscle Tone: [no impairment] Gait: [grossly normal] Station: [grossly normal Mental Status Examination - General Appearance: [well groomed, appears stated age Speech/Language: [spontaneous,monotone, soft Attitude/Behavior: [cooperative, Mood: [depressed, anxious, fearful, hopelessness] Affect: [ flat, incongruent Orientation: [time, person, place situation] Thought Content: [wnl, Risk Factors: [At the time of admission she was suicidal (ideations, plan), not Homicidal (ideations, plan), other] Perception: [wnl Thought Processes: [goal-oriented Concentration/Attention Span: [wnl] [Per observation and interview with the patient] Recent Memory: [wnl] [ 3 out of 3 in 3 minutes] Remote Memory: [wnl, impaired] [past events, as related history] Intelligence: [average] [based on history, based on vocabulary, syntax, grammar , and content] Judgement: [ fair] [per patient's behavior/history of present illness] Insight: [fair] [understanding severity of illness/history of present illness] Admitting Diagnosis: [Major depressive disorder single episode moderate to severe] Patient Strengths - Personal Skills: [x] Achievements: [x] Steady employment/financial stability: [x] Housing stability: [x] Able to vocalize needs: [x] Values and traditions: [x] Motivation, determination, readiness for change: [x] Setting and pursuing goals, hopes, dreams, aspirations: [x] Resources - social, interpersonal, monetary: [x] Interpersonal relationships and supports available - family, relatives, friends : [x] Patient Limitations: [medication, non-compliance, pathological/unsupported environment, no interests, intellectual impairment, complicated medical illness , legal issues, lack of social supports, other] Initial Plan of Care: [Patient will admitted formal voluntary and will be placed on 15 minute checks for safety and usual protocol for mental health unit. She will be evaluated by medicine, psychiatry, nursing staff, social work , recreational therapy and integrated into a multi specialty team with discussions on a daily basis regarding treatment and disposition. She will be placed on Wellbutrin 150 mg in the morning, Celexa 40 mg a day, medicine recommended Lipitor addition, add Lamictal 25 mg by mouth daily at bedtime for augmentation of depression which she responded to be for quite well but stopped taking. Due to her job reassignment she is quite despondent sad and overwhelmed. Goal of treatment is to make sure that her emotions are stable and regains her pride and not feel so shameful and guilty for seeking help. In the and seeking help cost her her job. In addition I will do T3-T4 evaluation make sure that thyroid levels are within normal limits which in some cases of her low T3 I will augment with Cytomel if needed.] Estimated Length of Stay: [5 days] Initial Discharge Plan: [home, referred to therapist Prognosis: [good] Justification for Inpatient Hospitalization - [ agitation, anxiety, depression resulting in significant loss of functioning.] [Dangerous to selfy with need for controlled environment.] [Emotional or behavioral conditions and complications requiring 24 hour medical and nursing care.] [Need for special drug therapy, or other therapeutic program requiring continuous hospitalization.] [Failure of social or occupational functioning.] [Inability to meet basic life and health needs.] Current Visit: Yes Status: Acute Priority: Medium Code(s): F33.9 - MAJOR DEPRESSIVE DISORDER, RECURRENT, UNSPECIFIED SNOMED Code(s): 30356107 (2) Depression Current Visit: Yes Status: Acute Priority: Medium Code(s): F32.9 - MAJOR DEPRESSIVE DISORDER, SINGLE EPISODE, UNSPECIFIED SNOMED Code(s): 35011367 (3) Suicidal ideation Current Visit: Yes Status: Resolved Priority: Low Code(s): R45.851 - SUICIDAL IDEATIONS SNOMED Code(s): 1733743 Time with Patient: Greater than 30
[2018-05-23] MEDS: ATORVASTATIN 10 MG TAB PO SCH (20:22)
[2018-05-23] MEDS: LEVOTHYROXINE 75 MCG TAB PO SCH (20:24)
[2018-05-23] MEDS ORDERED: lamoTRIgine 25 MG TAB PO SCH (21:00)
[2018-05-24] MEDS: LEVOTHYROXINE 75 MCG TAB PO SCH (06:16)
[2018-05-24] MEDS: buPROPion XL 150 MG TAB.ER.24H PO SCH (08:24)
[2018-05-24] MEDS: CITALOPRAM HYDROBROMIDE 20 MG TAB PO SCH (08:24)
--- NOTE | 2018-05-24 13:47 | P.PN ---
Subjective Progress Note Date: 05/24/18 Principal diagnosis: Major depressive disorder single episode moderate to severe Chart reviewed today and was discussed in team. She states today that she has little difficulty sleeping last due to roommates on other side of her. She is polite and appropriate and describes less depression 6 out of 10 and anxiety 6 out of 10. She stopped taking her medications before because he were not written for her after the last hospitalization. She denies any suicidal homicidal ideation today. She slept fairly well but does recognize the noise from 2 other peers there adjacent to her room. When asked about the change her room she said it's okay sir i'm okay Objective - Vital Signs Vital signs: Vital Signs Temp 97.9 F 05/24/18 06:46 Pulse 96 05/24/18 06:46 Resp 16 05/24/18 06:46 BP 126/72 05/24/18 06:46 Pulse Ox 98 05/21/18 22:11 - Labs CBC & Chem 7: 05/22/18 07:53 05/22/18 07:53 Assessment and Plan (1) Major depressive disorder, recurrent episode with mixed features Narrative/Plan: HPI: This is a pleasant 47 years old female with past medical history of hypothyroidism and depression. who presents because of depression and suicidal ideation. We will consulted for medical management. She denies chest pain or dyspnea. No change in urine or bowel habits. No fever. No nausea vomiting. She is denies h/o smoking to me . Occasional alcohol no also tracks. Patient states that she has 3-4 scratching crisostomo on her right forearm ventral side due to frustration. No redness or swelling or tenderness around it. No lymphadenopathy. 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 She chose reassignment. She does not feel this was fair and gets quite tearful and emotional regarding this set of circumstances. Past Medical History Past Medical History: Thyroid Disorder Additional Past Medical History / Comment(s): hypoglycemia, IBS History of Any Multi-Drug Resistant Organisms: None Reported Past Surgical History: Section Past Anesthesia/Blood Transfusion Reactions: No Reported Reaction Past Psychological History: Depression Smoking Status: Never smoker Past Alcohol Use History: None Reported, Occasional Past Drug Use History: None Reported - Past Family History Father Family Medical History: Coronary Artery Disease (CAD) Medications and Allergies Home Medications Medication Instructions Recorded Confirmed Type Citalopram Hydrobromide [CeleXA] 20 mg PO HS 01/22/18 01/22/18 History Levothyroxine Sodium [Synthroid] 75 mcg PO HS 01/22/18 01/22/18 History Allergies Allergy/AdvReac Type Severity Reaction Status Date / Time prednisone Allergy Rash/Hives Verified 05/21/18 22:26 Musculoskeletal Examination - Abnormal/Involuntary Movements: [none] Strength: [greater than antigravity (greater than/equal to 3/5) in all extremities:] Muscle Tone: [no impairment] Gait: [grossly normal] Station: [grossly normal Mental Status Examination - General Appearance: [well groomed, appears stated age Speech/Language: [spontaneous,monotone, soft Attitude/Behavior: [cooperative, Mood: [depressed, anxious, fearful, hopelessness] Affect: [ flat, incongruent Orientation: [time, person, place situation] Thought Content: [wnl, Risk Factors: [At the time of admission she was suicidal (ideations, plan), not Homicidal (ideations, plan), other] Perception: [wnl Thought Processes: [goal-oriented Concentration/Attention Span: [wnl] [Per observation and interview with the patient] Recent Memory: [wnl] [ 3 out of 3 in 3 minutes] Remote Memory: [wnl, impaired] [past events, as related history] Intelligence: [average] [based on history, based on vocabulary, syntax, grammar , and content] Judgement: [ fair] [per patient's behavior/history of present illness] Insight: [fair] [understanding severity of illness/history of present illness] Admitting Diagnosis: [Major depressive disorder single episode moderate to severe] Patient Strengths - Personal Skills: [x] Achievements: [x] Steady employment/financial stability: [x] Housing stability: [x] Able to vocalize needs: [x] Values and traditions: [x] Motivation, determination, readiness for change: [x] Setting and pursuing goals, hopes, dreams, aspirations: [x] Resources - social, interpersonal, monetary: [x] Interpersonal relationships and supports available - family, relatives, friends : [x] Patient Limitations: [medication, non-compliance, pathological/unsupported environment, no interests, intellectual impairment, complicated medical illness , legal issues, lack of social supports, other] Initial Plan of Care: [Patient will admitted formal voluntary and will be placed on 15 minute checks for safety and usual protocol for mental health unit. She will be evaluated by medicine, psychiatry, nursing staff, social work , recreational therapy and integrated into a multi specialty team with discussions on a daily basis regarding treatment and disposition. She will be placed on Wellbutrin 150 mg in the morning, Celexa 40 mg a day, medicine recommended Lipitor addition, add Lamictal 25 mg by mouth daily at bedtime for augmentation of depression which she responded to be for quite well but stopped taking. Due to her job reassignment she is quite despondent sad and overwhelmed. Goal of treatment is to make sure that her emotions are stable and regains her pride and not feel so shameful and guilty for seeking help. In the and seeking help cost her her job. In addition I will do T3-T4 evaluation make sure that thyroid levels are within normal limits which in some cases of her low T3 I will augment with Cytomel if needed.] Estimated Length of Stay: [ 4days] Initial Discharge Plan: [home, referred to therapist Prognosis: [good] Justification for Inpatient Hospitalization - [ agitation, anxiety, depression resulting in significant loss of functioning.] [Dangerous to selfy with need for controlled environment.] [Emotional or behavioral conditions and complications requiring 24 hour medical and nursing care.] [Need for special drug therapy, or other therapeutic program requiring continuous hospitalization.] [Failure of social or occupational functioning.] [Inability to meet basic life and health needs.] Current Visit: Yes Status: Acute Priority: Medium Code(s): F33.9 - MAJOR DEPRESSIVE DISORDER, RECURRENT, UNSPECIFIED SNOMED Code(s): 58538201 (2) Depression Current Visit: Yes Status: Acute Priority: Medium Code(s): F32.9 - MAJOR DEPRESSIVE DISORDER, SINGLE EPISODE, UNSPECIFIED SNOMED Code(s): 14266502 (3) Suicidal ideation Current Visit: Yes Status: Resolved Priority: Low Code(s): R45.851 - SUICIDAL IDEATIONS SNOMED Code(s): 4763447 Plan: Lamictal was started yesterday on 05/23/2018 at 25 mg and will titrate daily until reaching 200 mg by mouth daily at bedtime. Her Wellbutrin will be continued for her mood at 150 mg SR by mouth daily and Celexa 40 mg by mouth daily. She is still attending groups and participate in individual therapy and integrated into the [facility] and milieu therapeutic environment. Time with Patient: Less than 30
[2018-05-24] MEDS: ATORVASTATIN 10 MG TAB PO SCH (20:30)
[2018-05-24] MEDS ORDERED: lamoTRIgine 25 MG TAB PO SCH (21:00)
[2018-05-25] MEDS: LEVOTHYROXINE 75 MCG TAB PO SCH (06:45)
[2018-05-25] MEDS: buPROPion XL 150 MG TAB.ER.24H PO SCH (08:44)
[2018-05-25] MEDS: CITALOPRAM HYDROBROMIDE 20 MG TAB PO SCH (08:44)
--- NOTE | 2018-05-25 12:52 | P.PN ---
Subjective Progress Note Date: 05/25/18 Principal diagnosis: Major depressive disorder single episode moderate to severe Chart reviewed today and was discussed in team. She states today that she has some difficulty sleeping last due to roommates on other side of her. She is polite and appropriate and describes less depression 5 out of 10 and anxiety 5 out of 10. She stopped taking her medications before because he were not written for her after the last hospitalization. She denies any suicidal homicidal ideation today. She slept fairly well but does recognize the noise from 2 other peers there adjacent to her room. When asked about the change her room she said it's okay sir i'm okay Objective - Vital Signs Vital signs: Vital Signs Temp 98.0 F 05/25/18 06:22 Pulse 87 05/25/18 06:22 Resp 16 05/25/18 06:22 BP 141/83 05/25/18 06:22 Pulse Ox 98 05/21/18 22:11 - Labs CBC & Chem 7: 05/22/18 07:53 05/22/18 07:53 Assessment and Plan (1) Major depressive disorder, recurrent episode with mixed features Narrative/Plan: HPI: This is a pleasant 47 years old female with past medical history of hypothyroidism and depression. who presents because of depression and suicidal ideation. We will consulted for medical management. She denies chest pain or dyspnea. No change in urine or bowel habits. No fever. No nausea vomiting. She is denies h/o smoking to me . Occasional alcohol no also tracks. Patient states that she has 3-4 scratching crisostomo on her right forearm ventral side due to frustration. No redness or swelling or tenderness around it. No lymphadenopathy. 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 She chose reassignment. She does not feel this was fair and gets quite tearful and emotional regarding this set of circumstances. Past Medical History Past Medical History: Thyroid Disorder Additional Past Medical History / Comment(s): hypoglycemia, IBS History of Any Multi-Drug Resistant Organisms: None Reported Past Surgical History: Section Past Anesthesia/Blood Transfusion Reactions: No Reported Reaction Past Psychological History: Depression Smoking Status: Never smoker Past Alcohol Use History: None Reported, Occasional Past Drug Use History: None Reported - Past Family History Father Family Medical History: Coronary Artery Disease (CAD) Medications and Allergies Home Medications Medication Instructions Recorded Confirmed Type Citalopram Hydrobromide [CeleXA] 20 mg PO HS 01/22/18 01/22/18 History Levothyroxine Sodium [Synthroid] 75 mcg PO HS 01/22/18 01/22/18 History Allergies Allergy/AdvReac Type Severity Reaction Status Date / Time prednisone Allergy Rash/Hives Verified 05/21/18 22:26 Musculoskeletal Examination - Abnormal/Involuntary Movements: [none] Strength: [greater than antigravity (greater than/equal to 3/5) in all extremities:] Muscle Tone: [no impairment] Gait: [grossly normal] Station: [grossly normal Mental Status Examination - General Appearance: [well groomed, appears stated age Speech/Language: [spontaneous,monotone, soft Attitude/Behavior: [cooperative, Mood: [depressed, anxious, fearful, hopelessness] Affect: [ flat, incongruent Orientation: [time, person, place situation] Thought Content: [wnl, Risk Factors: [At the time of admission she was suicidal (ideations, plan), not Homicidal (ideations, plan), other] Perception: [wnl Thought Processes: [goal-oriented Concentration/Attention Span: [wnl] [Per observation and interview with the patient] Recent Memory: [wnl] [ 3 out of 3 in 3 minutes] Remote Memory: [wnl, impaired] [past events, as related history] Intelligence: [average] [based on history, based on vocabulary, syntax, grammar , and content] Judgement: [ fair] [per patient's behavior/history of present illness] Insight: [fair] [understanding severity of illness/history of present illness] Admitting Diagnosis: [Major depressive disorder single episode moderate to severe] Patient Strengths - Personal Skills: [x] Achievements: [x] Steady employment/financial stability: [x] Housing stability: [x] Able to vocalize needs: [x] Values and traditions: [x] Motivation, determination, readiness for change: [x] Setting and pursuing goals, hopes, dreams, aspirations: [x] Resources - social, interpersonal, monetary: [x] Interpersonal relationships and supports available - family, relatives, friends : [x] Patient Limitations: [medication, non-compliance, pathological/unsupported environment, no interests, intellectual impairment, complicated medical illness , legal issues, lack of social supports, other] Initial Plan of Care: [Patient will admitted formal voluntary and will be placed on 15 minute checks for safety and usual protocol for mental health unit. She will be evaluated by medicine, psychiatry, nursing staff, social work , recreational therapy and integrated into a multi specialty team with discussions on a daily basis regarding treatment and disposition. She will be placed on Wellbutrin 150 mg in the morning, Celexa 40 mg a day, medicine recommended Lipitor addition, add Lamictal 25 mg by mouth daily at bedtime for augmentation of depression which she responded to be for quite well but stopped taking. Due to her job reassignment she is quite despondent sad and overwhelmed. Goal of treatment is to make sure that her emotions are stable and regains her pride and not feel so shameful and guilty for seeking help. In the and seeking help cost her her job. In addition I will do T3-T4 evaluation make sure that thyroid levels are within normal limits which in some cases of her low T3 I will augment with Cytomel if needed.] Estimated Length of Stay: [ 1 days] Initial Discharge Plan: [home, referred to therapist Prognosis: [good] Justification for Inpatient Hospitalization - [ agitation, anxiety, depression resulting in significant loss of functioning.] [Dangerous to selfy with need for controlled environment.] [Emotional or behavioral conditions and complications requiring 24 hour medical and nursing care.] [Need for special drug therapy, or other therapeutic program requiring continuous hospitalization.] [Failure of social or occupational functioning.] [Inability to meet basic life and health needs.] Current Visit: Yes Status: Acute Priority: Medium Code(s): F33.9 - MAJOR DEPRESSIVE DISORDER, RECURRENT, UNSPECIFIED SNOMED Code(s): 69341434 (2) Depression Current Visit: Yes Status: Acute Priority: Medium Code(s): F32.9 - MAJOR DEPRESSIVE DISORDER, SINGLE EPISODE, UNSPECIFIED SNOMED Code(s): 74245210 (3) Suicidal ideation Current Visit: Yes Status: Resolved Priority: Low Code(s): R45.851 - SUICIDAL IDEATIONS SNOMED Code(s): 2800650 Plan: Lamictal was started on 05/23/2018 at 25 mg, tonight will raise to 100mg and will titrate daily until reaching 200 mg by mouth daily at bedtime. Her Wellbutrin will be continued for her mood at 150 mg SR by mouth daily and Celexa 40 mg by mouth daily. She is still attending groups and participate in individual therapy and integrated into the [facility] therapeutic environment. Time with Patient: Less than 30
[2018-05-25] MEDS ORDERED: lamoTRIgine 100 MG TAB PO SCH (21:00)
[2018-05-25] MEDS: ATORVASTATIN 10 MG TAB PO SCH (21:33)
[2018-05-26] MEDS: LEVOTHYROXINE 75 MCG TAB PO SCH (06:54)
[2018-05-26 07:04] VITALS: BP 136/75; PULSE 91; RESP 18; TEMP 98.2
[2018-05-26] MEDS: buPROPion XL 150 MG TAB.ER.24H PO SCH (08:58)
[2018-05-26] MEDS: CITALOPRAM HYDROBROMIDE 20 MG TAB PO SCH (08:58)
--- NOTE | 2018-05-26 12:47 | P.DS ---
Providers Date of admission: 05/21/18 21:36 Expected date of discharge: 05/26/18 Attending physician: Timothy Jeffries DO Consults: 05/21/18 22:01 Consult Physician Routine Consulting Provider: Toro Wilson Consult Reason/Comments: medical management Do you want consulting provider notified?: Yes, Notify in am Primary care physician: Michael Little - Discharge Diagnosis(es) (1) Major depressive disorder, recurrent episode with mixed features This is a pleasant 47 years old female with past medical history of hypothyroidism and depression. who presents because of depression and suicidal ideation. We will consulted for medical management. She denies chest pain or dyspnea. No change in urine or bowel habits. No fever. No nausea vomiting. She is denies h/o smoking to me . Occasional alcohol no also tracks. Patient states that she has 3-4 scratching crisostomo on her right forearm ventral side due to frustration. No redness or swelling or tenderness around it. No lymphadenopathy. 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 She chose reassignment. She does not feel this was fair and gets quite tearful and emotional regarding this set of circumstances. Past Medical History Past Medical History: Thyroid Disorder Additional Past Medical History / Comment(s): hypoglycemia, IBS History of Any Multi-Drug Resistant Organisms: None Reported Past Surgical History: Section Past Anesthesia/Blood Transfusion Reactions: No Reported Reaction Past Psychological History: Depression Smoking Status: Never smoker Past Alcohol Use History: None Reported, Occasional Past Drug Use History: None Reported - Past Family History Father Family Medical History: Coronary Artery Disease (CAD) Medications and Allergies Home Medications Medication Instructions Recorded Confirmed Type Citalopram Hydrobromide [CeleXA] 20 mg PO HS 01/22/18 01/22/18 History Levothyroxine Sodium [Synthroid] 75 mcg PO HS 01/22/18 01/22/18 History Allergies Allergy/AdvReac Type Severity Reaction Status Date / Time prednisone Allergy Rash/Hives Verified 05/21/18 22:26 Current Visit: Yes Status: Acute Priority: Low (2) Depression Current Visit: Yes Status: Acute Priority: Low Hospital Course: Course of Care: [Patient was admitted formal voluntary and will be placed on 15 minute checks for safety and usual protocol for mental health unit. She was evaluated by medicine, psychiatry, nursing staff, social work, recreational therapy and integrated into a multi specialty team with discussions on a daily basis regarding treatment and disposition. She was placed on Wellbutrin 150 mg in the morning, Celexa 40 mg a day, medicine recommended Lipitor addition, add Lamictal 25 mg by mouth daily at bedtime for augmentation of depression which she responded to be for quite well but stopped taking. Due to her job reassignment she is quite despondent sad and overwhelmed. Goal of treatment is to make sure that her emotions are stable and regains her pride and not feel so shameful and guilty for seeking help. Lamictal was started on 05/23/2018 at 25 mg, tonight will raise to 100mg and will titrate daily until reaching 100 mg by mouth daily at bedtime. Her Wellbutrin will be continued for her mood at 150 mg SR by mouth daily and Celexa 40 mg by mouth daily. She is still attending groups and participate in individual therapy and integrated into the [facility] therapeutic environment. Mental status examination at the time of discharge The patient presents alert, pleasant, and cooperative. There calmly seated without any agitated behavior. [She] reports that [her] mood is good. Affect is congruent and euthymic. [She] deny having any suicidal or homicidal ideation intent or plan. [She] denies any auditory or visual hallucinations. There is no evidence of any delusional thought content. [Her] thought process is linear and goal-directed. [Her] speech is fluent and nonpressured. [Her] memory and concentration is grossly intact for the purposes of this session. She has done well on the unit and integrated well. Polite young lady who integrated well within the [facility] therapeutic environment and with her peers and staff. She should do well on outpatient basis maintaining her medications as we noted above. Patient Condition at Discharge: Good Plan - Discharge Summary Discharge Rx Participant: No New Discharge Prescriptions: New Atorvastatin [Lipitor] 10 mg PO HS 30 Days #30 tab buPROPion XL [Wellbutrin XL] 150 mg PO DAILY 30 Days #30 tab.er.24h Citalopram Hydrobromide [CeleXA] 40 mg PO DAILY 30 Days #30 tab lamoTRIgine [LaMICtal] 100 mg PO 2100 30 Days #30 tab Discontinued Levothyroxine Sodium [Synthroid] 75 mcg PO HS Citalopram Hydrobromide [CeleXA] 20 mg PO HS Discharge Medication List Atorvastatin [Lipitor] 10 mg PO HS 30 Days #30 tab 05/26/18 [Rx] Citalopram Hydrobromide [CeleXA] 40 mg PO DAILY 30 Days #30 tab 05/26/18 [Rx] buPROPion XL [Wellbutrin XL] 150 mg PO DAILY 30 Days #30 tab.er.24h 05/26/18 [Rx ] lamoTRIgine [LaMICtal] 100 mg PO 2100 30 Days #30 tab 05/26/18 [Rx] Follow up Appointment(s)/Referral(s): Counseling,Johnnie Lees [Other] - 06/01/18 9:00 pm (Barbara ) Michael Little DO [Primary Care Provider] - 1-2 days Patient Instructions/Handouts: Depression (DC), Suicide Prevention (DC) Activity/Diet/Wound Care/Special Instructions: Activity and Diet as tolerated. Avoid the use of street drugs and alcohol. Take all medications as prescribed, when you are in need of refills contact your medical doctor or psychiatrist. Please go to all scheduled outpatient appointments for aftercare treatment. If symptoms return or worsen you can call the crisis line @ and/or return to the nearest emergency room for evaluation. Discharge Disposition: HOME SELF-CARE
== END 2018-05-26 14:25 | disposition home or self-care (01) | DRG 885 ==
LOC: EC 18:21 → 3MHU 21:36
PROVIDERS: ADMIT Psychiatry & Neurology Psychiatry; ATTEND Psychiatry & Neurology Psychiatry
DX: F33.2 Major depressive disorder, recurrent severe without psychotic features (principal); R45.851 Suicidal ideations; E03.9 Hypothyroidism, unspecified; E78.5 Hyperlipidemia, unspecified; F41.0 Panic disorder [episodic paroxysmal anxiety]; I25.10 Atherosclerotic heart disease of native coronary artery without angina pectoris; K58.9 Irritable bowel syndrome, unspecified; Z81.8 Family history of other mental and behavioral disorders; Z82.49 Family history of ischemic heart disease and other diseases of the circulatory system; Z91.19 Patient's noncompliance with other medical treatment and regimen; Z91.5 Personal history of self-harm; Z98.891 History of uterine scar from previous surgery; Z79.890 Hormone replacement therapy; Z79.899 Other long term (current) drug therapy; Z88.8 Allergy status to other drugs, medicaments and biological substances
CPT/HCPCS: 80053; 80061; 80306; 81003; 81025; 83036; 84436; 84443; 84480; 85025; 99285

== ENCOUNTER → 2019-01-20 | Day surgery (SDC) | payer OTHER ==
[2019-01-17 10:20] VITALS: BMI 35.6
[~2019-01-20] MED LIST: BACITRACIN 500 UNIT/GM OINT 28.4 GM TUBE TOPICAL ONE; BUPIVACAIN-EPI 0.25%-1:200,000 30 ML VIAL SQ ONE; LIDOCAINE 1% INJ 10MG/ML (20 ML MDV) ONE; MIDAZOLAM 2 MG/2 ML VIAL IV PRN; MIDAZOLAM 2 MG/2 ML VIAL ONE; PROPOFOL 10 MG/ML 20 ML VIAL IV ONE; Pre Op ABX Message 1 EACH MISC MISCELLANE ONE; SCOPOLAMINE 1.5MG/72HR PATCH TRANSDERM ONE; fentaNYL (PF) 50 MCG/ML 2 ML AMP IV PRN; fentaNYL (PF) 50 MCG/ML 2 ML AMP ONE
--- NOTE | 2019-01-20 06:16 | P.GSHP ---
History of Present Illness H&P Date: 01/20/19 CHIEF COMPLAINT: Scalp mass HISTORY OF PRESENT ILLNESS: The patient is a 48 year-old female with history of mass along the scalp. She presents today for surgical excision. PAST MEDICAL HISTORY: Please see list. PAST SURGICAL HISTORY: Please see list. MEDICATIONS: Please see list. ALLERGIES: Please see list. SOCIAL HISTORY: No illicit drug use FAMILY HISTORY: No reports of Crohn disease or ulcerative colitis. REVIEW OF ORGAN SYSTEMS: CONSTITUTIONAL: No reports of fevers or chills. GI: Denies any blood in stools or constipation. PHYSICAL EXAM: VITAL SIGNS: Stable SKIN: Well perfused. Good skin turgor. Mass 3 cm along the scalp Musculoskeletal: No clubbing cyanosis or edema GENERAL: Well developed and in no acute distress. Pleasant. HEENT: No sclera icterus. Extraocular movements grossly intact. Moist buccal mucosa. Head is atraumatic, normocephalic. Hears conversational speech. No nasal drainage. NECK: Supple without lymphadenopathy. No JV distention. CHEST: Non-labored respirations and equal bilateral excursions. CARDIOVASCULAR: Regular rate and rhythm. Palpable 2+ radial pulses. ABDOMEN: Soft. Non-tender. Nondistended. NEUROLOGIC: No focal or lateralizing signs. PSYCH: Appropriate affect. Alert and oriented to person, place and time. ASSESSMENT: 1. Mass along scalp PLAN: 1. Will proceed of excision of subcutaneous tumor along the scalp 2. DVT prophylaxis. 3. Antibiotic prophylaxis. Past Medical History Past Medical History: Thyroid Disorder Additional Past Medical History / Comment(s): Hx. hypoglycemia, IBS History of Any Multi-Drug Resistant Organisms: None Reported Past Surgical History: Section Additional Past Surgical History / Comment(s): [place] teeth Past Anesthesia/Blood Transfusion Reactions: No Reported Reaction Smoking Status: Never smoker - Past Family History Father Family Medical History: Coronary Artery Disease (CAD) Medications and Allergies Home Medications Medication Instructions Recorded Confirmed Type Citalopram Hydrobromide [CeleXA] 40 mg PO DAILY 30 Days #30 tab 05/26/18 01/17/19 Rx buPROPion XL [Wellbutrin XL] 150 mg PO DAILY 30 Days #30 05/26/18 01/17/19 Rx tab.er.24h lamoTRIgine [LaMICtal] 100 mg PO 2100 30 Days #30 tab 05/26/18 01/17/19 Rx Levothyroxine Sodium [Synthroid] 25 mcg PO DAILY 01/17/19 01/17/19 History Allergies Allergy/AdvReac Type Severity Reaction Status Date / Time prednisone Allergy Rash/Hives Verified 01/17/19 10:31 morphine AdvReac Nausea & Verified 01/17/19 10:31 Vomiting Oral Steroids Allergy Rash/Hives Uncoded 01/17/19 10:31
[2019-01-20 06:58] VITALS: TEMP 98.1
[2019-01-20] MEDS: LACTATED RINGERS 1,000 ML IV SCH ×2 (07:09→07:33)
[2019-01-20] MEDS: ONDANSETRON 4 MG/2 ML VIAL IVP ONE ×2 (07:13→07:16)
--- NOTE | 2019-01-20 09:34 | P.PCN ---
Date of Procedure: 01/20/19 Description of Procedure: SURGEON: EMILY TINOCO MD EMPLOYMENT DIRECTOR: None. PREOPERATIVE DIAGNOSES: 1. Central scalp tumor, 3 cm 2. Depressive disorder 3. Bipolar disorder 4. Hypothyroidism 5. Morbid obesity, BMI 35.7 POSTOPERATIVE DIAGNOSES: 1. Central scalp tumor, 3 cm, deep subcutaneous/fascia 2. Depressive disorder 3. Bipolar disorder 4. Hypothyroidism 5. Morbid obesity, BMI 35.7 PROCEDURES PERFORMED: 1. Excision of deep subcutaneous and fascial central scalp tumor, 9 x 3 cm 2. Complex closure scalp incision, 9 cm Anesthesia: GETA, local Estimated Blood Loss (ml): 50 Pathology: other (scalp mass) Condition: stable Disposition: same day COMPLICATIONS: None. INDICATIONS: The patient is a 48-year-old male who presents with symptomatic central scalp tumor. Benefits and risks of surgical intervention were described including bleeding, infection. Informed consent was obtained. DESCRIPTION OR PROCEDURE: In the preoperative area, the area of concern was marked with indelible marker. Patient was brought into the operating room. After general induction, he was positioned in right lateral decubitus position. The scalp was prepped and draped in a standard sterile fashion. Timeout protocol was confirmed with the surgical team regarding the patient's name, procedure to be performed including preoperative medications. DVT prophylaxis was confirmed. A field block was placed of the scalp. A transverse elliptical incision using #15 blade was made along the marking into the deep subcutaneous tissue to the fascia. Electro-Bovie cautery was used to incise to the fascia with dissection and elevation of the mass. Skin flaps were elevated and developed circumferentially with 4 cm border undermining to prepare for closure of the excision. 0 Vicryl for the deep subcutaneous tissue followed 0-Nurolon full-thickness along the central portion of the incision was placed. Skin tere were used to re-approximate the proximal distal end of the incision. Final running suture of 3-0 Prolene was placed to completely close the dermis. The skin was cleansed with hydrogen peroxide followed by bacitracin ointment along the closure. At the end of the procedure, needle, sponge, and instrument count was verified correct by certified surgical assistant. The patient tolerated the procedure well. Operative Findings: 1. Excision of deep subcutaneous and fascial tumor with wide undermining for closure 9 x 3 cm. Plan - Discharge Summary Discharge Rx Participant: Yes New Discharge Prescriptions: New Bacitracin Oint 1 applic TOPICAL DAILY #30 gm Ibuprofen [Motrin] 600 mg PO Q8HR PRN #30 tab PRN Reason: Pain Acetaminophen Tab [Tylenol Tab] 500 mg PO Q6H PRN #30 tablet PRN Reason: Pain No Action buPROPion XL [Wellbutrin XL] 150 mg PO DAILY 30 Days #30 tab.er.24h Citalopram Hydrobromide [CeleXA] 40 mg PO DAILY 30 Days #30 tab lamoTRIgine [LaMICtal] 100 mg PO 2100 30 Days #30 tab Levothyroxine Sodium [Synthroid] 25 mcg PO DAILY Discharge Medication List Citalopram Hydrobromide [CeleXA] 40 mg PO DAILY 30 Days #30 tab 05/26/18 [Rx] buPROPion XL [Wellbutrin XL] 150 mg PO DAILY 30 Days #30 tab.er.24h 05/26/18 [Rx] lamoTRIgine [LaMICtal] 100 mg PO 2100 30 Days #30 tab 05/26/18 [Rx] Levothyroxine Sodium [Synthroid] 25 mcg PO DAILY 01/17/19 [History] Acetaminophen Tab [Tylenol Tab] 500 mg PO Q6H PRN #30 tablet 01/20/19 [Rx] Bacitracin Oint 1 applic TOPICAL DAILY #30 gm 01/20/19 [Rx] Ibuprofen [Motrin] 600 mg PO Q8HR PRN #30 tab 01/20/19 [Rx] Follow up Appointment(s)/Referral(s): Emily Tinoco MD [STAFF PHYSICIAN] - 01/24/19 Patient Instructions/Handouts: Care For Your Stitches (DC), Scalp Lesion (GEN) Activity/Diet/Wound Care/Special Instructions: Cleanse incision with soapy water followed by hydrogen peroxide. Apply thin layer of bacitracin ointment twice daily. LEEP on to elevated pillows. Discharge Disposition: HOME SELF-CARE
[2019-01-20 10:03] VITALS: BP 117/78; PULSE 73; RESP 17
== END | disposition home or self-care (01) ==
LOC: OR 06:23
PROVIDERS: ATTEND Surgery Plastic and Reconstructive Surgery
DX: L72.11 Pilar cyst (principal); E07.9 Disorder of thyroid, unspecified; K58.9 Irritable bowel syndrome, unspecified; E03.9 Hypothyroidism, unspecified; F31.9 Bipolar disorder, unspecified; E66.01 Morbid (severe) obesity due to excess calories; Z68.35 Body mass index [BMI] 35.0-35.9, adult; Z79.890 Hormone replacement therapy; Z79.899 Other long term (current) drug therapy; Z88.5 Allergy status to narcotic agent; Z88.8 Allergy status to other drugs, medicaments and biological substances
CPT/HCPCS: 81025; 88304; 11426; 13121; 13122; J2250; J0690; J2405; J2001; J3010; J2704

== ENCOUNTER → 2020-01-05 | Outpatient (CLI) | payer OTHER ==
--- NOTE | 2020-01-11 10:35 | MM ---
Reason for exam: screening (asymptomatic). Last mammogram was performed 1 year and 11 months ago. History: Patient had first child at age 29. Took hormonal contraceptives for 16 years beginning at age 19. Physical Findings: A clinical breast exam by your physician is recommended on an annual basis and results should be correlated with mammographic findings. MG Screening Mammo w CAD Bilateral CC and MLO view(s) were taken. Prior study comparison: February 15, 2018, bilateral MG screening mammo w CAD. January 28, 2017, bilateral MG screening mammo w CAD. There are scattered fibroglandular densities. No significant changes when compared with prior studies. ASSESSMENT: Benign, BI-RAD 2 RECOMMENDATION: Routine screening mammogram of both breasts in 1 year.
== END | disposition home or self-care (01) ==
LOC: RADMAMWWP 07:56
PROVIDERS: ATTEND Family Medicine
DX: Z12.31 Encounter for screening mammogram for malignant neoplasm of breast (principal)
CPT/HCPCS: 77067

== ENCOUNTER 2020-08-09 18:06 | Inpatient (IN) | payer OTHER ==
[2020-08-09 19:54] LABS: Basophils # (A) 0.1 k/uL (0-0.2); Basophils % (A) 1 %; Eosinophils # (A) 0.3 k/uL (0-0.7); Eosinophils % (A) 3 %; HCT 37.2 % (34.0-46.0); HGB 11.6 gm/dL (11.4-16.0); Hypochromasia Moderate; Lymphocytes # (A) 1.7 k/uL (1.0-4.8); Lymphocytes % (A) 19 %; MCH 22.7 pg (25.0-35.0); MCHC 31.1 g/dL (31.0-37.0); Mean Platelet Volume 6.2; Microcytosis Slight; Monocytes # (A) 0.5 k/uL (0-1.0); Monocytes % (A) 6 %; Neutrophils # (A) 6.2 k/uL (1.3-7.7); Neutrophils % (A) 70 %; Platelet Count 492 k/uL (150-450); RDW 15.2 % (11.5-15.5); WBC 8.9 k/uL (3.8-10.6)
[2020-08-09 19:55] LABS: Appearance,Urine Clear (Clear); Bilirubin,Urine Negative (Negative); Blood,Urine Small (Negative); Color,Urine Yellow; Glucose,Urine (UA) Negative (Negative); Hyaline Casts,Urine 1 /lpf (0-2); Ketones,Urine Negative (Negative); Leukocyte Esterase,Urine Negative (Negative); Mucus,Urine Rare /hpf; Nitrite,Urine Negative (Negative); Protein,Urine Negative (Negative); RBC,Urine 4 /hpf (0-5); Specific Gravity,Urine 1.013 (1.001-1.035); Squamous Epithelial Cell,Urine 6 /hpf (0-4); Urobilinogen,Urine <2.0 mg/dL (<2.0); WBC,Urine 2 /hpf (0-5)
[2020-08-09 20:02] LABS: Amphetamine Screen,Urine Not Detected (NotDetected); Barbiturate Screen,Urine Not Detected (NotDetected); Benzodiazepines Screen,Urine Not Detected (NotDetected); Cocaine Screen,Urine Not Detected (NotDetected); Methadone Screen, Urine Not Detected (NotDetected); Opiate Screen,Urine Not Detected (NotDetected); Oxycodone Screen, Urine Not Detected (NotDetected); Phencyclidine Screen,Urine Not Detected (NotDetected); Tricyclic Antidepressant,Urine Not Detected (NotDetected); Urn Cannabinoid Scrn Not Detected (NotDetected)
[2020-08-09 20:03] LABS: ALT 15 U/L (4-34); AST 23 U/L (14-36); African American GFR (CKD) >90 (>60 ml/min/1.73 sqM); Alkaline Phosphatase 88 U/L (38-126); Anion Gap 10 mmol/L; Blood Urea Nitrogen 12 mg/dL (7-17); Calcium 10.2 mg/dL (8.4-10.2); Carbon Dioxide 29 mmol/L (22-30); Chloride 98 mmol/L (98-107); Glucose 100 mg/dL (74-99); Non-African American GFR(CKD) 82 (>60 ml/min/1.73 sqM); Potassium 3.9 mmol/L (3.5-5.1); Sodium 137 mmol/L (137-145); Total Bilirubin 0.5 mg/dL (0.2-1.3); Total Protein 8.4 g/dL (6.3-8.2)
--- NOTE | 2020-08-09 21:28 | ED ---
Psych HPI - General Chief Complaint: Psychiatric Symptoms Stated Complaint: Mental health Time Seen by Provider: 08/09/20 18:27 Source: patient, family Mode of arrival: ambulatory - History of Present Illness Initial Comments: This 49-year-old female presents with a complaint of depression. She states that this is been long-standing in nature. It has been worse over the last couple of days. She states that she has bipolar disorder and has fluctuating moods in relation to this. She has been taking her medications regularly. She apparently caught all of her hair off today. She also has been cutting her left arm. No current medical complaints. She denies any drugs or alcohol. No other modifying factors. - Related Data Home Medications Medication Instructions Recorded Confirmed Levothyroxine Sodium [Synthroid] 25 mcg PO DAILY 01/17/19 01/20/19 Previous Rx's Medication Instructions Recorded Citalopram Hydrobromide [CeleXA] 40 mg PO DAILY 30 Days #30 tab 05/26/18 buPROPion XL [Wellbutrin XL] 150 mg PO DAILY 30 Days #30 05/26/18 tab.er.24h lamoTRIgine [LaMICtal] 100 mg PO 2100 30 Days #30 tab 05/26/18 Acetaminophen Tab [Tylenol Tab] 500 mg PO Q6H PRN #30 tablet 01/20/19 Bacitracin Zinc Oint 1 applic TOPICAL DAILY #30 gm 01/20/19 Ibuprofen [Motrin] 600 mg PO Q8HR PRN #30 tab 01/20/19 Allergies Allergy/AdvReac Type Severity Reaction Status Date / Time prednisone Allergy Rash/Hives Verified 08/09/20 18:12 morphine AdvReac Nausea & Verified 08/09/20 18:12 Vomiting Oral Steroids Allergy Rash/Hives Uncoded 08/09/20 18:12 Review of Systems ROS Statement: Those systems with pertinent positive or pertinent negative responses have been documented in the HPI. ROS Other: All systems not noted in ROS Statement are negative. Past Medical History Past Medical History: Thyroid Disorder Additional Past Medical History / Comment(s): Hx. hypoglycemia, IBS History of Any Multi-Drug Resistant Organisms: None Reported Past Surgical History: Section Additional Past Surgical History / Comment(s): [place] teeth Past Anesthesia/Blood Transfusion Reactions: No Reported Reaction Past Psychological History: Bipolar, Depression Smoking Status: Never smoker Past Alcohol Use History: Occasional Past Drug Use History: None Reported - Past Family History Father Family Medical History: Coronary Artery Disease (CAD) General Exam - General Exam Comments Initial Comments: Constitutional: Alert and oriented, no apparent distress Vitals: Reviewed, please see nursing notes HEENT: No gross trauma identified, trachea midline, no respiratory distress Neck: No tenderness, good range of motion Heart: Regular rate and rhythm without murmur Lungs: Clear to auscultation bilaterally, no wheezing rhonchi or rales Abdomen: No tenderness or peritoneal signs noted, nondistended Back: No tenderness Neurologic: No gross sensory or motor deficits identified Integumentary: No rash or change in pigmentation. There are several small scratches noted to the left arm. Psychiatric: Alert and oriented, slight flat affect. Course Vital Signs 08/09/20 18:09 Temperature 97.8 F Pulse Rate 100 Respiratory 18 Rate Blood Pressure 147/96 O2 Sat by Pulse 99 Oximetry Medical Decision Making - Medical Decision Making The patient was seen and examined. All diagnostics are reviewed. Her breath all all test is negative. The case is discussed with the psychiatric nurse and she evaluates the patient as well. They feel as though she would require admission to a hospital for further inpatient psychiatric treatment. Her care apparently is arranged or a proved through the [facility]. They are navigating this process. The patient may be admitted to our facility if approved through the [place]. It is felt as though she is medically stable for admission to a psychiatric facility. - Lab Data Result diagrams: 08/09/20 19:45 08/09/20 19:45 Lab Results 08/09/20 08/09/20 08/09/20 Range/Units 19:45 19:45 19:45 WBC 8.9 (3.8-10.6) k/uL RBC 5.10 (3.80-5.40) m/uL Hgb 11.6 (11.4-16.0) gm/dL Hct 37.2 (34.0-46.0) % MCV 73.0 L (80.0-100.0) fL MCH 22.7 L (25.0-35.0) pg MCHC 31.1 (31.0-37.0) g/dL RDW 15.2 (11.5-15.5) % Plt Count 492 H (150-450) k/uL MPV 6.2 Neutrophils % 70 % Lymphocytes % 19 % Monocytes % 6 % Eosinophils % 3 % Basophils % 1 % Neutrophils # 6.2 (1.3-7.7) k/uL Lymphocytes # 1.7 (1.0-4.8) k/uL Monocytes # 0.5 (0-1.0) k/uL Eosinophils # 0.3 (0-0.7) k/uL Basophils # 0.1 (0-0.2) k/uL Hypochromasia Moderate Microcytosis Slight Sodium (137-145) mmol/L Potassium (3.5-5.1) mmol/L Chloride (98-107) mmol/L Carbon Dioxide (22-30) mmol/L Anion Gap mmol/L BUN (7-17) mg/dL Creatinine (0.52-1.04) mg/dL Est GFR (CKD-EPI)AfAm (>60 ml/min/1.73 sqM) Est GFR (CKD-EPI)NonAf (>60 ml/min/1.73 sqM) Glucose (74-99) mg/dL Calcium (8.4-10.2) mg/dL Total Bilirubin (0.2-1.3) mg/dL AST (14-36) U/L ALT (4-34) U/L Alkaline Phosphatase (38-126) U/L Total Protein (6.3-8.2) g/dL Albumin (3.5-5.0) g/dL Urine Color Yellow Urine Appearance Clear (Clear) Urine pH 6.0 (5.0-8.0) Ur Specific [place] 1.013 (1.001-1.035) Urine Protein Negative (Negative) Urine Glucose (UA) Negative (Negative) Urine Ketones Negative (Negative) Urine Blood Small H (Negative) Urine Nitrite Negative (Negative) Urine Bilirubin Negative (Negative) Urine Urobilinogen <2.0 (<2.0) mg/dL Ur Leukocyte Esterase Negative (Negative) Urine RBC 4 (0-5) /hpf Urine WBC 2 (0-5) /hpf Ur Squamous Epith Cells 6 H (0-4) /hpf Hyaline Casts 1 (0-2) /lpf Urine Mucus Rare H (None) /hpf Urine HCG, Qual Not Detected (Not Detectd) Urine Opiates Screen Not Detected (NotDetected) Ur Oxycodone Screen Not Detected (NotDetected) Urine Methadone Screen Not Detected (NotDetected) Ur Propoxyphene Screen Not Detected (NotDetected) Ur Barbiturates Screen Not Detected (NotDetected) U Tricyclic Antidepress Not Detected (NotDetected) Ur Phencyclidine Scrn Not Detected (NotDetected) Ur Amphetamines Screen Not Detected (NotDetected) U Methamphetamines Scrn Not Detected (NotDetected) U Benzodiazepines Scrn Not Detected (NotDetected) Urine Cocaine Screen Not Detected (NotDetected) U Marijuana (THC) Screen Not Detected (NotDetected) Coronavirus (PCR) (Not Detectd) 08/09/20 08/09/20 Range/Units 19:45 19:45 WBC (3.8-10.6) k/uL RBC (3.80-5.40) m/uL Hgb (11.4-16.0) gm/dL Hct (34.0-46.0) % MCV (80.0-100.0) fL MCH (25.0-35.0) pg MCHC (31.0-37.0) g/dL RDW (11.5-15.5) % Plt Count (150-450) k/uL MPV Neutrophils % % Lymphocytes % % Monocytes % % Eosinophils % % Basophils % % Neutrophils # (1.3-7.7) k/uL Lymphocytes # (1.0-4.8) k/uL Monocytes # (0-1.0) k/uL Eosinophils # (0-0.7) k/uL Basophils # (0-0.2) k/uL Hypochromasia Microcytosis Sodium 137 (137-145) mmol/L Potassium 3.9 (3.5-5.1) mmol/L Chloride 98 (98-107) mmol/L Carbon Dioxide 29 (22-30) mmol/L Anion Gap 10 mmol/L BUN 12 (7-17) mg/dL Creatinine 0.83 (0.52-1.04) mg/dL Est GFR (CKD-EPI)AfAm >90 (>60 ml/min/1.73 sqM) Est GFR (CKD-EPI)NonAf 82 (>60 ml/min/1.73 sqM) Glucose 100 H (74-99) mg/dL Calcium 10.2 (8.4-10.2) mg/dL Total Bilirubin 0.5 (0.2-1.3) mg/dL AST 23 (14-36) U/L ALT 15 (4-34) U/L Alkaline Phosphatase 88 (38-126) U/L Total Protein 8.4 H (6.3-8.2) g/dL Albumin 5.0 (3.5-5.0) g/dL Urine Color Urine Appearance (Clear) Urine pH (5.0-8.0) Ur Specific [place] (1.001-1.035) Urine Protein (Negative) Urine Glucose (UA) (Negative) Urine Ketones (Negative) Urine Blood (Negative) Urine Nitrite (Negative) Urine Bilirubin (Negative) Urine Urobilinogen (<2.0) mg/dL Ur Leukocyte Esterase (Negative) Urine RBC (0-5) /hpf Urine WBC (0-5) /hpf Ur Squamous Epith Cells (0-4) /hpf Hyaline Casts (0-2) /lpf Urine Mucus (None) /hpf Urine HCG, Qual (Not Detectd) Urine Opiates Screen (NotDetected) Ur Oxycodone Screen (NotDetected) Urine Methadone Screen (NotDetected) Ur Propoxyphene Screen (NotDetected) Ur Barbiturates Screen (NotDetected) U Tricyclic Antidepress (NotDetected) Ur Phencyclidine Scrn (NotDetected) Ur Amphetamines Screen (NotDetected) U Methamphetamines Scrn (NotDetected) U Benzodiazepines Scrn (NotDetected) Urine Cocaine Screen (NotDetected) U Marijuana (THC) Screen (NotDetected) Coronavirus (PCR) Not Detected (Not Detectd) Disposition Clinical Impression: Major depression, Self-mutilation, Bipolar disorder Disposition: TRANSFER TO PSYCH HOSP/UNIT Condition: Good Is patient prescribed a controlled substance at d/c from ED?: No Referrals: Michael Little DO [Primary Care Provider] - 1-2 days Time of Disposition: 21:33 Decision Date: 08/09/20 Decision Time: 21:34
[2020-08-09] MEDS ORDERED: MAGNESIUM HYDROXIDE 2,400 MG/10 ML CUP PO PRN (21:40)
[2020-08-09] MEDS ORDERED: ACETAMINOPHEN TAB 325 MG TAB PO PRN (21:40)
[2020-08-09] MEDS ORDERED: MAG HYDROX/AL HYDROX/SIMETH 30 ML CUP PO PRN (21:40)
[2020-08-09] MEDS ORDERED: LORazepam 1 MG TAB PO PRN (21:40)
[2020-08-10] MEDS: LEVOTHYROXINE 25 MCG TAB PO SCH (06:22)
[2020-08-10] MEDS ORDERED: CITALOPRAM HYDROBROMIDE 20 MG TAB PO SCH (09:00)
[2020-08-10] MEDS ORDERED: NICOTINE 14MG/24HR PATCH TRANSDERM SCH (09:00)
--- NOTE | 2020-08-10 11:46 | P.HP ---
Psychiatric H&P - . H&P Date: 08/10/20 History & Physical: Allergies Allergy/AdvReac Type Severity Reaction Status Date / Time prednisone Allergy Rash/Hives Verified 08/09/20 22:52 morphine AdvReac Nausea & Verified 08/09/20 22:52 Vomiting Oral Steroids Allergy Rash/Hives Uncoded 08/09/20 22:52 Vital Signs Temp 98.1 F 08/10/20 05:06 Pulse 92 08/10/20 05:06 Resp 17 08/10/20 05:06 BP 126/91 08/10/20 05:06 Pulse Ox 99 08/09/20 18:09 Intake & Output 08/09/20 08/10/20 08/10/20 18:59 06:59 18:59 Weight 87.09 kg 87.09 kg Laboratory Last Values WBC 8.9 k/uL (3.8-10.6) 08/09/20 19:45 RBC 5.10 m/uL (3.80-5.40) 08/09/20 19:45 Hgb 11.6 gm/dL (11.4-16.0) 08/09/20 19:45 Hct 37.2 % (34.0-46.0) 08/09/20 19:45 MCV 73.0 fL (80.0-100.0) L 08/09/20 19:45 MCH 22.7 pg (25.0-35.0) L 08/09/20 19:45 MCHC 31.1 g/dL (31.0-37.0) 08/09/20 19:45 RDW 15.2 % (11.5-15.5) 08/09/20 19:45 Plt Count 492 k/uL (150-450) H 08/09/20 19:45 MPV 6.2 08/09/20 19:45 Neutrophils % 70 % 08/09/20 19:45 Lymphocytes % 19 % 08/09/20 19:45 Monocytes % 6 % 08/09/20 19:45 Eosinophils % 3 % 08/09/20 19:45 Basophils % 1 % 08/09/20 19:45 Neutrophils # 6.2 k/uL (1.3-7.7) 08/09/20 19:45 Lymphocytes # 1.7 k/uL (1.0-4.8) 08/09/20 19:45 Monocytes # 0.5 k/uL (0-1.0) 08/09/20 19:45 Eosinophils # 0.3 k/uL (0-0.7) 08/09/20 19:45 Basophils # 0.1 k/uL (0-0.2) 08/09/20 19:45 Hypochromasia Moderate 08/09/20 19:45 Microcytosis Slight 08/09/20 19:45 Sodium 137 mmol/L (137-145) 08/09/20 19:45 Potassium 3.9 mmol/L (3.5-5.1) 08/09/20 19:45 Chloride 98 mmol/L (98-107) 08/09/20 19:45 Carbon Dioxide 29 mmol/L (22-30) 08/09/20 19:45 Anion Gap 10 mmol/L 08/09/20 19:45 BUN 12 mg/dL (7-17) 08/09/20 19:45 Creatinine 0.83 mg/dL (0.52-1.04) 08/09/20 19:45 Est GFR (CKD-EPI)AfAm >90 (>60 ml/min/1.73 sqM) 08/09/20 19:45 Est GFR (CKD-EPI)NonAf 82 (>60 ml/min/1.73 sqM) 08/09/20 19:45 Glucose 100 mg/dL (74-99) H 08/09/20 19:45 Calcium 10.2 mg/dL (8.4-10.2) 08/09/20 19:45 Total Bilirubin 0.5 mg/dL (0.2-1.3) 08/09/20 19:45 AST 23 U/L (14-36) 08/09/20 19:45 ALT 15 U/L (4-34) 08/09/20 19:45 Alkaline Phosphatase 88 U/L (38-126) 08/09/20 19:45 Total Protein 8.4 g/dL (6.3-8.2) H 08/09/20 19:45 Albumin 5.0 g/dL (3.5-5.0) 08/09/20 19:45 Triglycerides 125 mg/dL (<150) 08/09/20 19:45 Cholesterol 272 mg/dL (<200) H 08/09/20 19:45 LDL Cholesterol, Calc 160 mg/dL (0-99) H 08/09/20 19:45 HDL Cholesterol 87 mg/dL (40-60) H 08/09/20 19:45 TSH 3.240 mIU/L (0.465-4.680) 08/09/20 19:45 Urine Color Yellow 08/09/20 19:45 Urine Appearance Clear (Clear) 08/09/20 19:45 Urine pH 6.0 (5.0-8.0) 08/09/20 19:45 Ur Specific [place] 1.013 (1.001-1.035) 08/09/20 19:45 Urine Protein Negative (Negative) 08/09/20 19:45 Urine Glucose (UA) Negative (Negative) 08/09/20 19:45 Urine Ketones Negative (Negative) 08/09/20 19:45 Urine Blood Small (Negative) H 08/09/20 19:45 Urine Nitrite Negative (Negative) 08/09/20 19:45 Urine Bilirubin Negative (Negative) 08/09/20 19:45 Urine Urobilinogen <2.0 mg/dL (<2.0) 08/09/20 19:45 Ur Leukocyte Esterase Negative (Negative) 08/09/20 19:45 Urine RBC 4 /hpf (0-5) 08/09/20 19:45 Urine WBC 2 /hpf (0-5) 08/09/20 19:45 Ur Squamous Epith Cells 6 /hpf (0-4) H 08/09/20 19:45 Hyaline Casts 1 /lpf (0-2) 08/09/20 19:45 Urine Mucus Rare /hpf (None) H 08/09/20 19:45 Urine HCG, Qual Not Detected (Not Detectd) 08/09/20 19:45 Urine Opiates Screen Not Detected (NotDetected) 08/09/20 19:45 Ur Oxycodone Screen Not Detected (NotDetected) 08/09/20 19:45 Urine Methadone Screen Not Detected (NotDetected) 08/09/20 19:45 Ur Propoxyphene Screen Not Detected (NotDetected) 08/09/20 19:45 Ur Barbiturates Screen Not Detected (NotDetected) 08/09/20 19:45 U Tricyclic Antidepress Not Detected (NotDetected) 08/09/20 19:45 Ur Phencyclidine Scrn Not Detected (NotDetected) 08/09/20 19:45 Ur Amphetamines Screen Not Detected (NotDetected) 08/09/20 19:45 U Methamphetamines Scrn Not Detected (NotDetected) 08/09/20 19:45 U Benzodiazepines Scrn Not Detected (NotDetected) 08/09/20 19:45 Urine Cocaine Screen Not Detected (NotDetected) 08/09/20 19:45 U Marijuana (THC) Screen Not Detected (NotDetected) 08/09/20 19:45 Coronavirus (PCR) Not Detected (Not Detectd) 08/09/20 19:45 08/10/20 11:13 IDENTIFYING DATA: Patient is a 49-year-old female with a history of bipolar disorder, who currently lives with her in a house has 1 daughter and 1 son and is currently unemployed. HPI: Patient presented to the hospital yesterday with complaints of depression for the past 2 days. She states that she has a history of bipolar disorder and has been compliant with her medications. She states that she shaved her head and cut her arm recently. Patient's UDS was negative. Patient was agreeable to speak to underwriter in the office. She had a constricted affect and a monotone voice. She claims that her "friends and family wanted me to come in". She was rather vague and evasive early on in conversation. She states that she has been dealing with bipolar depression for several years now. She claims that she shaved her head on night to give her "one last reason to look in the mirror". She states that she has had poor self-confidence "both inside and outside". She states that she was diagnosed with bipolar disorder in January 2018. She states that it's been a "roller coaster ever since". She states that she was [facility] at [facility]. She states that she has been having mostly depressed episodes and while the manic episode once a month. She states that she has been sleeping too much recently. Patient denies any suicidal or homicidal ideations intent or plan. At this time patient denies any auditory or visual hallucinations. Patient denies any flight of ideas racing thoughts and increased in goal directed behavior. Patient admits to using no recreational drugs or cigarettes. PAST PSYCHIATRIC HISTORY: Patient states that she has a history of bipolar disorder and depression. She was previously on Lamictal and Celexa. She claims that she has had several hospitalizations in the past and her last hospitalization was in May 2018. She claims that she follows up with Dr. Nice who is her psychiatrist at [facility] over the phone. She states that she had 1 suicide attempt in December 2019 when she attempted to overdose after resigning from her job. PMH: Thyroid disorder and IBS ALLERGIES: as per EMR CHEMICAL DEPENDENCY HISTORY: as per HPI FAMILY PSYCHIATRIC/SUBSTANCE USE HISTORY: She states that her sister suffers from depression and also her mother. SOCIAL HISTORY: Patient was born and raised in [facility] and states that she grew up in [place]. She states that she completed college degree in biology in [place]. She claims that she was an [employer] non-combat from [id number]. She states that she currently lives with her and daughter in a house and has 1 son who is in college. She denies any legal history. MENTAL STATUS EXAM: General Appearance: Patient appears to be overweight, has a shaved head, stated age is alert, directable, and attempts to cooperate. Guarded at first. Patient appears to have poor hygiene and grooming. Behavior: Patient is seated without any agitated behavior. Guarded. Speech: Patient's speech is fluent and nonpressured. Monotone. Mood/Affect: Patient reports their mood is depressed, affect is congruent and constricted. Suicidality/Homicidality: Patient denies having any homicidal ideation intent or plan. Denies any suicidal ideations intent or plan Perceptions: Patient denies any visual hallucinations and denies any auditory hallucinations Though content/process: There is no evidence of any delusional thought content and thought process is linear and goal-directed. Poverty of content. Memory and concentration: AOX3, grossly intact for the purposes of this session. Can spell "WORLD" backwards Judgment and insight: poor STRENGTHS/WEAKNESSES: strength is that patient is resilient. Weakness is that patient has poor judgment and is impulsive INTELLECT: average IMPRESSIONS: Bipolar disorder, currently depressed Anxiety disorder unspecified PLAN: -Patient is admitted under voluntary status to MHU for stabilization of psychiatric symptoms and safety. Patient has signed adult voluntary form and medication consent and is placed in patient's chart. -Medications : Will start patient on latuda 20mg at 6pm with food for bipolar depression. -Ativan and Haldol PRN for agitation/aggression -Patient was informed of the risks, benefits and side effects of the medication and patient verbally consented to taking the medications. Patient signed med consent form and was placed in chart. -Internal Medicine consult to perform medical evaluation and physical. -NRT - not needed as patient does not smoke -SW on board for discharge planning. Encourage patient to participate in groups to work on coping skills.
--- NOTE | 2020-08-10 14:11 | P.CONS ---
History of Present Illness - Reason for Consult Medical clearance - History of Present Illness Patient is pleasant 49-year-old female with known history of bipolar disorder was admitted for management of her psychiatric issues. Patient is very cooperative white male history patient denied any fever chills nausea vomiting abdominal pain dysuria. Patient does have history of hypothyroidism and have elevated LDL. Review of Systems REVIEW OF SYSTEMS: CONSTITUTIONAL: No fever, no malaise, no fatigue. HEENT: No recent visual problems or hearing problems. Denied any sore throat. CARDIOVASCULAR: No chest pain, orthopnea, PND, no palpitations, no syncope. PULMONARY: No shortness of breath, no cough, no hemoptysis. GASTROINTESTINAL: No diarrhea, no nausea, no vomiting, no abdominal pain. NEUROLOGICAL: No headaches, no weakness, no numbness. HEMATOLOGICAL: Denies any bleeding or petechiae. GENITOURINARY: Denies any burning micturition, frequency, or urgency. MUSCULOSKELETAL/RHEUMATOLOGICAL: Denies any joint pain, swelling, or any muscle pain. ENDOCRINE: Denies any polyuria or polydipsia. The rest of the 14-point review of systems is negative. Past Medical History Past Medical History: Thyroid Disorder Additional Past Medical History / Comment(s): Hx. hypoglycemia, IBS, cyst on head History of Any Multi-Drug Resistant Organisms: None Reported Past Surgical History: Section Additional Past Surgical History / Comment(s): [place] teeth Past Anesthesia/Blood Transfusion Reactions: No Reported Reaction Smoking Status: Never smoker - Past Family History Father Family Medical History: Coronary Artery Disease (CAD) Medications and Allergies Home Medications Medication Instructions Recorded Confirmed Type Citalopram Hydrobromide [CeleXA] 40 mg PO DAILY 30 Days #30 tab 05/26/18 01/20/19 Rx buPROPion XL [Wellbutrin XL] 150 mg PO DAILY 30 Days #30 05/26/18 01/20/19 Rx tab.er.24h lamoTRIgine [LaMICtal] 100 mg PO 2100 30 Days #30 tab 05/26/18 01/20/19 Rx Levothyroxine Sodium [Synthroid] 25 mcg PO DAILY 01/17/19 01/20/19 History Acetaminophen Tab [Tylenol Tab] 500 mg PO Q6H PRN #30 tablet 01/20/19 Rx Bacitracin Zinc Oint 1 applic TOPICAL DAILY #30 gm 01/20/19 Rx Ibuprofen [Motrin] 600 mg PO Q8HR PRN #30 tab 01/20/19 Rx Allergies Allergy/AdvReac Type Severity Reaction Status Date / Time prednisone Allergy Rash/Hives Verified 08/09/20 22:52 morphine AdvReac Nausea & Verified 08/09/20 22:52 Vomiting Oral Steroids Allergy Rash/Hives Uncoded 08/09/20 22:52 Physical Exam Vitals: Vital Signs Temp Pulse Pulse Resp BP BP Pulse Ox 08/10/20 05:06 98.1 F 92 17 126/91 08/09/20 22:39 97.5 F L 79 16 133/92 08/09/20 18:09 97.8 F 100 18 147/96 99 Intake and Output 08/09/20 08/10/20 08/10/20 22:59 06:59 14:59 Other: Weight 87.09 kg PHYSICAL EXAMINATION: GENERAL: The patient is alert and oriented x3, not in any acute distress. Well developed, well nourished. HEENT: Pupils are round and equally reacting to light. EOMI. No scleral icterus. No conjunctival pallor. Normocephalic, atraumatic. No pharyngeal erythema. No thyromegaly. CARDIOVASCULAR: S1 and S2 present. No murmurs, rubs, or gallops. PULMONARY: Chest is clear to auscultation, no wheezing or crackles. ABDOMEN: Soft, nontender, nondistended, normoactive bowel sounds. No palpable organomegaly. MUSCULOSKELETAL: No joint swelling or deformity. EXTREMITIES: No cyanosis, clubbing, or pedal edema. NEUROLOGICAL: Gross neurological examination did not reveal any focal deficits. SKIN: No rashes. Results CBC & Chem 7: 08/09/20 19:45 08/09/20 19:45 Labs: Abnormal Lab Results - Last 24 Hours (Table) 08/09/20 08/09/20 08/09/20 Range/Units 19:45 19:45 19:45 MCV 73.0 L (80.0-100.0) fL MCH 22.7 L (25.0-35.0) pg Plt Count 492 H (150-450) k/uL Glucose 100 H (74-99) mg/dL Total Protein 8.4 H (6.3-8.2) g/dL Cholesterol (<200) mg/dL LDL Cholesterol, Calc (0-99) mg/dL HDL Cholesterol (40-60) mg/dL Urine Blood Small H (Negative) Ur Squamous Epith Cells 6 H (0-4) /hpf Urine Mucus Rare H (None) /hpf 08/09/20 Range/Units 19:45 MCV (80.0-100.0) fL MCH (25.0-35.0) pg Plt Count (150-450) k/uL Glucose (74-99) mg/dL Total Protein (6.3-8.2) g/dL Cholesterol 272 H (<200) mg/dL LDL Cholesterol, Calc 160 H (0-99) mg/dL HDL Cholesterol 87 H (40-60) mg/dL Urine Blood (Negative) Ur Squamous Epith Cells (0-4) /hpf Urine Mucus (None) /hpf Assessment and Plan Plan: -Hypothyroidism continue levothyroxine -Hyperlipidemia with highly elevated LDL patient was started on 20 mg of Lipitor -Bipolar disorder management as per primary service
[2020-08-10 15:45] LABS: Hemoglobin A1C 5.2 % (4.0-6.0)
[2020-08-10] MEDS: LURASIDONE 20 MG TAB PO SCH (17:55)
[2020-08-10] MEDS ORDERED: lamoTRIgine 100 MG TAB PO SCH (21:00)
[2020-08-10] MEDS: ATORVASTATIN 20 MG TAB PO SCH (21:17)
[2020-08-11] MEDS: LEVOTHYROXINE 25 MCG TAB PO SCH (06:33)
[2020-08-11 06:52] VITALS: RESP 16
--- NOTE | 2020-08-11 10:08 | P.PN ---
Progress Note - Text Progress Note Date: 08/11/20 Interval History: Patient was seen wandering the hallways and was directable and agreeable to remington alvarez with keno writer in the office. Patient was carrying around a Bible today and appeared to have improvement in her hygiene and grooming. She states that she is feeling "calmer today". She states that she took the medication last night with her dinner and states that she was able to sleep throughout the night last night. She claims that she is worried that she would not sleep due to her roommate coughing and having pneumonia however she was able to sleep throughout the night. She states that today her mood has been gradually improving and is hopeful that the medication will help her further. She states that she has been going to groups and spoke with her yesterday. She denies any anxiety today or any racing thoughts. At this time patient denies any suicidal or homical ideations, intent or plan. Patient denies any auditory, visual hallucinations and denies any paranoia or delusions. Patient denies any side effects from the medications and has been compliant with meds. Mental Status Exam: General Appearance: Patient appears to be overweight, has a shaved head, stated age is alert, directable, and attempts to cooperate. Guarded at first. Patient appears to have improving hygiene and grooming. Behavior: Patient is seated without any agitated behavior. Guarded, improving mildly Speech: Patient's speech is fluent and nonpressured. Monotone. Mood/Affect: Patient reports their mood is depressed, improving mildly, affect is congruent and constricted. Suicidality/Homicidality: Patient denies having any homicidal ideation intent or plan. Denies any suicidal ideations intent or plan Perceptions: Patient denies any visual hallucinations and denies any auditory hallucinations Though content/process: There is no evidence of any delusional thought content and thought process is linear and goal-directed. Poverty of content. Memory and concentration: AOX3, grossly intact for the purposes of this session Judgment and insight: poor, improving mildly Assessment Bipolar disorder, currently depressed Anxiety disorder unspecified Plan: -Patient continues to meet criteria for inpatient psychiatric admission for symptom stabilization and safety. Patient has signed adult voluntary form and medication consent and was placed in patient's chart. -Medications: Continue with Latuda 20mg at 6pm with food for bipolar depression. -When necessary Ativan and Haldol for agitation/aggression. -NRT - not needed as patient does not smoke -SW on board for discharge planning. Encouraged the patient to participate in milieu. Likely discharge in 1-2 days.
[2020-08-11] MEDS: LURASIDONE 20 MG TAB PO SCH (17:55)
[2020-08-11] MEDS: ATORVASTATIN 20 MG TAB PO SCH (21:29)
[2020-08-12] MEDS: LEVOTHYROXINE 25 MCG TAB PO SCH (06:47)
[2020-08-12 07:06] VITALS: BP 120/77; PULSE 82; TEMP 97.9
--- NOTE | 2020-08-12 11:01 | P.DS ---
Providers Date of admission: 08/09/20 21:39 Expected date of discharge: 08/12/20 Attending physician: Severo Villa MD Consults: 08/09/20 21:40 Consult Physician Routine Consulting Provider: Toro Wilson Consult Reason/Comments: medical management Do you want consulting provider notified?: Yes Primary care physician: Michael Little - Discharge Diagnosis(es) (1) Bipolar disorder current episode depressed Current Visit: Yes Status: Acute Priority: High (2) Anxiety disorder Current Visit: Yes Status: Acute Priority: Medium Hospital Course: Admission HPI: Admission note was completed by job specification writer "Patient is a 49-year-old female with a history of bipolar disorder, who currently lives with her in a house has 1 daughter and 1 son and is currently unemployed. Patient presented to the hospital yesterday with complaints of depression for the past 2 days. She states that she has a history of bipolar disorder and has been compliant with her medications. She states that she shaved her head and cut her arm recently. Patient's UDS was negative. Patient was agreeable to speak to job specification writer in the office. She had a constricted affect and a monotone voi ce. She claims that her "friends and family wanted me to come in". She was rather vague and evasive early on in conversation. She states that she has been dealing with bipolar depression for several years now. She claims that she shaved her head on night to give her "one last reason to look in the mirror". She states that she has had poor self-confidence "both inside and outside". She states that she was diagnosed with bipolar disorder in January 2018. She states that it's been a "roller coaster ever since". She states that she was diagnosed at [facility]. She states that she has been having mostly depressed episodes and while the manic episode once a month. She states that she has been sleeping too much recently. Patient denies any suicidal or homicidal ideations intent or plan. At this time patient denies any auditory or visual hallucinations. Patient denies any flight of ideas racing thoughts and increased in goal directed behavior. Patient admits to using no recreational drugs or cigarettes." Hospital course: Upon admission to the unit patient was initially depressed and anxious. Patient was however directable and agreeable to commence treatment and signed adult voluntary form. Patient got along well with other patients on the unit and followed unit protocol. Patient was compliant with the medications and denied any side effects throughout hospital course. Patient was started on Latuda 20 mg at 1800 with dinner for bipolar depression. Patient spoke of her stressors and engaged in therapy both group and individual. Patient was also seen by medical team for history and physical exam. Throughout the course of the hospitalization patient gradually improved with regards to mood, anxiety, sleep and became more future oriented with improved insight and judgment. On the day of discharge patient denied any suicidal or homicidal ideations intent or plan denied any auditory or visual hallucinations. Patient endorsed wanting to live for her family and her future. The patient denied any access to guns or weapons. Patient denied any paranoia and did not endorse any delusions. Patient does not have a significant history of substance abuse however was counseled on abstaining from all substances including alcohol and marijuana. Patient was also counseled on the medications and need for regular compliance and was encouraged to follow-up with their outpatient appointment for mental health and also for primary care. Prior to discharge a family meeting will be arranged by adoption social worker to answer any questions and ensure safety upon discharge. Mental status exam: General Appearance: Patient appears to be overweight, wearing glasses with a shaved head, stated age is alert, pleasant, and cooperative. Patient is in no acute distress and has improved hygiene and grooming Behavior: Patient is calmly seated without any agitated behavior. Cooperative. Speech: Patient's speech is fluent and nonpressured. Mood/Affect: Patient reports their mood is "better", affect is congruent and euthymic. Suicidality/Homicidality: Patient denies having any suicidal or homicidal ideation intent or plan. Perceptions: Patient denies any auditory or visual hallucinations. Though content/process: There is no evidence of any delusional thought content and thought process is linear and goal-directed. more future oriented Memory and concentration: AOX3, grossly intact for the purposes of this session. Can spell "WORLD" backwards correctly. Judgment and insight: improved with guarded prognosis Impression: Bipolar disorder, currently depressed Anxiety disorder unspecified Plan: -Continue with discharge today as patient has improved and stabilized psychiatrically and is not currently an imminent threat to herself and/or others. -Continue medications: continue with Latuda 20mg at 18:00 hr for bipolar depression. -Patient was counseled on the need for medication compliance and appropriate follow-up at mental health and also primary care for medical issues. Patient verbalized understanding and agreed. -Social work to arrange for and conduct family meeting with patient's to ensure safety upon discharge and answer any questions/concerns and to ensure that there are no guns or weapons in the house. Social work also to arrange for patients follow up appointments with Dr. Nice at [facility] for psychiatric care along with follow up with primary care provider. -Patient counseled on abstaining from recreational drugs and marijuana and alcohol. Was informed/educated on the adverse effects on their physical and mental health. Patient verbally agreed and understood. -Patient was instructed to return to the hospital or seek immediate medical care if their psychiatric or medical symptoms do worsen or reoccur. Allergies Allergy/AdvReac Type Severity Reaction Status Date / Time prednisone Allergy Rash/Hives Verified 08/09/20 22:52 morphine AdvReac Nausea & Verified 08/09/20 22:52 Vomiting Oral Steroids Allergy Rash/Hives Uncoded 08/09/20 22:52 Laboratory Results WBC 8.9 k/uL (3.8-10.6) 08/09/20 19:45 RBC 5.10 m/uL (3.80-5.40) 08/09/20 19:45 Hgb 11.6 gm/dL (11.4-16.0) 08/09/20 19:45 Hct 37.2 % (34.0-46.0) 08/09/20 19:45 MCV 73.0 fL (80.0-100.0) L 08/09/20 19:45 MCH 22.7 pg (25.0-35.0) L 08/09/20 19:45 MCHC 31.1 g/dL (31.0-37.0) 08/09/20 19:45 RDW 15.2 % (11.5-15.5) 08/09/20 19:45 Plt Count 492 k/uL (150-450) H 08/09/20 19:45 MPV 6.2 08/09/20 19:45 Neutrophils % 70 % 08/09/20 19:45 Lymphocytes % 19 % 08/09/20 19:45 Monocytes % 6 % 08/09/20 19:45 Eosinophils % 3 % 08/09/20 19:45 Basophils % 1 % 08/09/20 19:45 Neutrophils # 6.2 k/uL (1.3-7.7) 08/09/20 19:45 Lymphocytes # 1.7 k/uL (1.0-4.8) 08/09/20 19:45 Monocytes # 0.5 k/uL (0-1.0) 08/09/20 19:45 Eosinophils # 0.3 k/uL (0-0.7) 08/09/20 19:45 Basophils # 0.1 k/uL (0-0.2) 08/09/20 19:45 Hypochromasia Moderate 08/09/20 19:45 Microcytosis Slight 08/09/20 19:45 Sodium 137 mmol/L (137-145) 08/09/20 19:45 Potassium 3.9 mmol/L (3.5-5.1) 08/09/20 19:45 Chloride 98 mmol/L (98-107) 08/09/20 19:45 Carbon Dioxide 29 mmol/L (22-30) 08/09/20 19:45 Anion Gap 10 mmol/L 08/09/20 19:45 BUN 12 mg/dL (7-17) 08/09/20 19:45 Creatinine 0.83 mg/dL (0.52-1.04) 08/09/20 19:45 Est GFR (CKD-EPI)AfAm >90 (>60 ml/min/1.73 sqM) 08/09/20 19:45 Est GFR (CKD-EPI)NonAf 82 (>60 ml/min/1.73 sqM) 08/09/20 19:45 Glucose 100 mg/dL (74-99) H 08/09/20 19:[address] Glu mg/dL 103 08/09/20 19:45 Hemoglobin A1c 5.2 % (4.0-6.0) 08/09/20 19:45 Calcium 10.2 mg/dL (8.4-10.2) 08/09/20 19:45 Total Bilirubin 0.5 mg/dL (0.2-1.3) 08/09/20 19:45 AST 23 U/L (14-36) 08/09/20 19:45 ALT 15 U/L (4-34) 08/09/20 19:45 Alkaline Phosphatase 88 U/L (38-126) 08/09/20 19:45 Total Protein 8.4 g/dL (6.3-8.2) H 08/09/20 19:45 Albumin 5.0 g/dL (3.5-5.0) 08/09/20 19:45 Triglycerides 125 mg/dL (<150) 08/09/20 19:45 Cholesterol 272 mg/dL (<200) H 08/09/20 19:45 LDL Cholesterol, Calc 160 mg/dL (0-99) H 08/09/20 19:45 HDL Cholesterol 87 mg/dL (40-60) H 08/09/20 19:45 TSH 3.240 mIU/L (0.465-4.680) 08/09/20 19:45 Urine Color Yellow 08/09/20 19:45 Urine Appearance Clear (Clear) 08/09/20 19:45 Urine pH 6.0 (5.0-8.0) 08/09/20 19:45 Ur Specific Mccarley 1.013 (1.001-1.035) 08/09/20 19:45 Urine Protein Negative (Negative) 08/09/20 19:45 Urine Glucose (UA) Negative (Negative) 08/09/20 19:45 Urine Ketones Negative (Negative) 08/09/20 19:45 Urine Blood Small (Negative) H 08/09/20 19:45 Urine Nitrite Negative (Negative) 08/09/20 19:45 Urine Bilirubin Negative (Negative) 08/09/20 19:45 Urine Urobilinogen <2.0 mg/dL (<2.0) 08/09/20 19:45 Ur Leukocyte Esterase Negative (Negative) 08/09/20 19:45 Urine RBC 4 /hpf (0-5) 08/09/20 19:45 Urine WBC 2 /hpf (0-5) 08/09/20 19:45 Ur Squamous Epith Cells 6 /hpf (0-4) H 08/09/20 19:45 Hyaline Casts 1 /lpf (0-2) 08/09/20 19:45 Urine Mucus Rare /hpf (None) H 08/09/20 19:45 Urine HCG, Qual Not Detected (Not Detectd) 08/09/20 19:45 Urine Opiates Screen Not Detected (NotDetected) 02/26/21 19:45 Ur Oxycodone Screen Not Detected (NotDetected) 08/09/20 19:45 Urine Methadone Screen Not Detected (NotDetected) 08/09/20 19:45 Ur Propoxyphene Screen Not Detected (NotDetected) 08/09/20 19:45 Ur Barbiturates Screen Not Detected (NotDetected) 08/09/20 19:45 U Tricyclic Antidepress Not Detected (NotDetected) 08/09/20 19:45 Ur Phencyclidine Scrn Not Detected (NotDetected) 08/09/20 19:45 Ur Amphetamines Screen Not Detected (NotDetected) 08/09/20 19:45 U Methamphetamines Scrn Not Detected (NotDetected) 08/09/20 19:45 U Benzodiazepines Scrn Not Detected (NotDetected) 08/09/20 19:45 Urine Cocaine Screen Not Detected (NotDetected) 08/09/20 19:45 U Marijuana (THC) Screen Not Detected (NotDetected) 08/09/20 19:45 Coronavirus (PCR) Not Detected (Not Detectd) 08/09/20 19:45 Vital Signs Temp 97.9 F 08/12/20 06:38 Pulse 82 08/12/20 06:38 Resp 16 08/12/20 06:38 BP 120/77 08/12/20 06:38 Pulse Ox 99 08/09/20 18:09 Patient Condition at Discharge: Stable Plan - Discharge Summary New Discharge Prescriptions: New Lurasidone [Latuda] 20 mg PO 1800 30 Days tab Atorvastatin [Lipitor] 20 mg PO HS 30 Days tab Levothyroxine Sodium [Synthroid] 25 mcg PO DAILY@0630 30 Days tab Acetaminophen Tab [Tylenol] 650 mg PO Q4HR PRN tab PRN Reason: Pain/Discomfort Discontinued buPROPion XL [Wellbutrin XL] 150 mg PO DAILY 30 Days #30 tab.er.24h Citalopram Hydrobromide [CeleXA] 40 mg PO DAILY 30 Days #30 tab lamoTRIgine [LaMICtal] 100 mg PO 2100 30 Days #30 tab Levothyroxine Sodium [Synthroid] 25 mcg PO DAILY Bacitracin Zinc Oint 1 applic TOPICAL DAILY #30 gm Ibuprofen [Motrin] 600 mg PO Q8HR PRN #30 tab PRN Reason: Pain Acetaminophen Tab [Tylenol Tab] 500 mg PO Q6H PRN #30 tablet PRN Reason: Pain Discharge Medication List Acetaminophen Tab [Tylenol] 650 mg PO Q4HR PRN tab 08/12/20 [Rx] Atorvastatin [Lipitor] 20 mg PO HS 30 Days tab 08/12/20 [Rx] Levothyroxine Sodium [Synthroid] 25 mcg PO DAILY@0630 30 Days tab 08/12/20 [Rx] Lurasidone [Latuda] 20 mg PO 1800 30 Days tab 08/12/20 [Rx] Follow up Appointment(s)/Referral(s): Michael Little DO [Primary Care Provider] - 1-2 days Activity/Diet/Wound Care/Special Instructions: Activity and diet as tolerated. Avoid the use of street drugs and alcohol. Take all medications as prescribed. When you are in need of refills on your medications please contact your medical provider and/or outpatient psychiatrist to have this done. Please go to scheduled outpatient appointment for aftercare treatment. If symptoms return or become worse, call the crisis line at and/or go to the nearest emergency room for evaluation. Discharge Disposition: HOME SELF-CARE
== END 2020-08-12 14:20 | disposition home or self-care (01) | DRG 885 ==
LOC: EC 18:06 → 3MHU 21:39
PROVIDERS: ADMIT Psychiatry & Neurology Psychiatry; ATTEND Psychiatry & Neurology Psychiatry
DX: F31.9 Bipolar disorder, unspecified (principal); E03.9 Hypothyroidism, unspecified; F41.9 Anxiety disorder, unspecified; Z56.0 Unemployment, unspecified; E66.3 Overweight; Z68.35 Body mass index [BMI] 35.0-35.9, adult; Z20.822 Contact with and (suspected) exposure to COVID-19; K58.9 Irritable bowel syndrome, unspecified; Z91.5 Personal history of self-harm; E78.5 Hyperlipidemia, unspecified; Z79.890 Hormone replacement therapy; Z79.899 Other long term (current) drug therapy; Z81.8 Family history of other mental and behavioral disorders; Z82.49 Family history of ischemic heart disease and other diseases of the circulatory system
CPT/HCPCS: 36415; 80053; 80061; 80306; 81001; 81025; 82075; 83036; 84443; 85025; 87635

== ENCOUNTER → 2020-09-26 | Outpatient (CLI) | payer OTHER ==
--- NOTE | 2020-09-26 18:56 | CONS ---
CONSULTATION DATE OF SERVICE: 09/26/2020 This 49-year-old lady has been evaluated in the sleep center for possible obstructive sleep apnea-hypopnea syndrome. HISTORY OF PRESENT ILLNESS/SLEEP-WAKE EVALUATION: At present patient's sleep schedule is from 10 p.m. to 10 a.m. Usually no problems with falling asleep. She has a TV set, though, in her bedroom. She usually sleeps on the back and side positions with snoring and witnessed episodes of stopped breathing during sleep. The patient wakes up from sleep 2 times with nocturia. In the morning the patient wakes up tired and sometimes has episodes of sleepiness during the day. [place] Sleepiness Scale is 6. The patient has episodes of [id number]-acspg movements during the night and also episodes of hand and leg movements and kicking movements. PAST MEDICAL HISTORY: Positive for hyperlipidemia, bipolar, hypertension, hypothyroidism, overactive bladder. PAST SURGICAL HISTORY: x2, benign cyst removed from the scalp area. MEDICATIONS: 1. Lipitor 20 mg once a day. 2. Latuda 40 mg once a day. 3. Oxybutynin 5 mg once a day. 4. Hydrochlorothiazide 25 mg once a day. 5. Synthroid 120 mcg once a day. SOCIAL HISTORY: Negative for smoking or using alcohol. FAMILY HISTORY: Heart problems, snoring, thyroid problems, mental illness, acid reflux. REVIEW OF SYSTEMS: No fevers. No double vision. No recent chest pain. No shortness of breath. No abdominal pain. No bleeding episodes. No blood in the urine. No seizure episodes. Snoring. Awakenings from sleep. PHYSICAL EXAMINATION: GENERAL: A pleasant lady without distress. VITAL SIGNS: BP 105/75, HR 82, RR 14, height 5 feet 3 inches, weight 200.8, body mass index 35.6, temperature 97.8, oxygen saturation at room air 94%. HEENT: PERRLA, EOMI. Evaluation of oropharynx showed tongue protrudes midline. Extremely low position of soft palate. Mallampati IV. NECK: Supple. No JVD. Thyroid is not palpable. Neck is wide; 17 inches in circumference. LUNGS: Clear to percussion and to auscultation. Good air exchange. No wheezing or rhonchi. HEART: S1, S2 regular. No murmurs, gallops or rubs. ABDOMEN: Soft and nontender. Bowel sounds are present. No organomegaly appreciated. EXTREMITIES: No clubbing or cyanosis. DRYING OVEN TENDER: Awake, alert, and oriented X3. Cranial nerves 2 to 7 intact. There is no fasciculation or atrophy. noted. No focal deficits observed. IMPRESSION: 1. Snoring, witnessed episodes of stopped breathing during sleep, awakenings from sleep with nocturia, extremely low position of soft palate, Mallampati IV, wide neck at 17 inches in circumference; obstructive sleep apnea-hypopnea syndrome. 2. Possible episodes of dpj-lu-lmkwp movements, possibly REM sleep behavioral disorder. 3. Kicking during the night; possibly periodic limb movements. 4. Hypertension. 5. Bipolar disorder. 6. Hyperlipidemia. 7. Hypothyroidism. 8. History of overactive bladder. 9. Status post benign cyst removed from the scalp. 10.Status post C-sections x2. PLAN: 1. Polysomnography for evaluation of patient's breathing during sleep. 2. CPAP/BiPAP titration if sleep study confirms obstructive sleep apnea-hypopnea syndrome. 3. Preferable position during sleep on the side. 4. No driving if patient feels any sleepiness. 5. I will see patient for follow up visit to explain results of testing and following plan. 6. Precautions related to possible REM sleep behavioral disorder. No access to firearms or guns during the nighttime, doors and windows. Thank you very much for referring this patient for consultation. Sincerely, Huber Llamas MD, PhD, FAASM Diplomat of [place] [employer] [place] [employer] [facility] [place] MMODL / IJN: [id number] /
== END ==
CPT/HCPCS: 99211

== ENCOUNTER 2020-11-12 08:29 | Day surgery (SDC) | payer OTHER ==
[2020-11-06 14:27] VITALS: BMI 36.6
[~2020-11-12 08:29] MED LIST changes: -BACITRACIN 500 UNIT/GM OINT 28.4 GM TUBE TOPICAL ONE; -BUPIVACAIN-EPI 0.25%-1:200,000 30 ML VIAL SQ ONE; +LACTATED RINGERS 1,000 ML IV SCH; +LIDOCAINE 1% (10MG/ML) FOR IV START INTRADERMA PRN; -LIDOCAINE 1% INJ 10MG/ML (20 ML MDV) ONE; -MIDAZOLAM 2 MG/2 ML VIAL IV PRN; -MIDAZOLAM 2 MG/2 ML VIAL ONE; -PROPOFOL 10 MG/ML 20 ML VIAL IV ONE; -Pre Op ABX Message 1 EACH MISC MISCELLANE ONE; -SCOPOLAMINE 1.5MG/72HR PATCH TRANSDERM ONE; -fentaNYL (PF) 50 MCG/ML 2 ML AMP IV PRN; -fentaNYL (PF) 50 MCG/ML 2 ML AMP ONE
[2020-11-12 09:08] VITALS: RESP 16; TEMP 97.9
[2020-11-12] MEDS ORDERED: PROPOFOL 10 MG/ML 20 ML VIAL IV ONE (09:32)
--- NOTE | 2020-11-12 09:36 | P.GSHP ---
History of Present Illness H&P Date: 11/12/20 Chief Complaint: Rectal bleeding, anemia Patient here today for colonoscopy. She has not had one previously. She did have a cologuard test about 1-2 years ago that was normal. She states she was recently told she was anemic. She has noticed a small amount rectal bleeding at times. No change in bowel habits. No family history of colon cancer. Past Medical History Past Medical History: Hyperlipidemia, Thyroid Disorder Additional Past Medical History / Comment(s): Hx. hypoglycemia, IBS, cyst on head History of Any Multi-Drug Resistant Organisms: None Reported Past Surgical History: Section Additional Past Surgical History / Comment(s): [place] teeth, CYST REMOVED FROM SCALP Past Anesthesia/Blood Transfusion Reactions: No Reported Reaction Smoking Status: Never smoker - Past Family History Father Family Medical History: Coronary Artery Disease (CAD) Medications and Allergies Home Medications Medication Instructions Recorded Confirmed Type Acetaminophen Tab [Tylenol] 650 mg PO Q4HR PRN tab 08/12/20 11/12/20 Rx Atorvastatin [Lipitor] 20 mg PO HS 30 Days tab 08/12/20 11/12/20 Rx Levothyroxine Sodium [Synthroid] 25 mcg PO DAILY@0630 30 Days tab 08/12/20 11/12/20 Rx Lurasidone [Latuda] 20 mg PO 1800 30 Days tab 08/12/20 11/12/20 Rx Oxybutynin Chloride [Ditropan XL] 5 mg PO DAILY 11/06/20 11/12/20 History Allergies Allergy/AdvReac Type Severity Reaction Status Date / Time prednisone Allergy Rash/Hives Verified 11/12/20 08:58 morphine AdvReac Nausea & Verified 11/12/20 08:58 Vomiting Oral Steroids Allergy Rash/Hives Uncoded 11/12/20 08:58 Surgical - Exam Vital Signs Temp Pulse Resp BP Pulse Ox 97.9 F 71 16 111/76 96 11/12/20 09:07 11/12/20 09:07 11/12/20 09:07 11/12/20 09:07 11/12/20 09:07 Physical exam: General: Well-developed, well-nourished HEENT: Normocephalic, sclerae nonicteric Abdomen: Nontender, nondistended Extremities: No edema Neuro: Alert and oriented Assessment and Plan (1) Rectal bleeding Narrative/Plan: Will proceed with colonoscopy Current Visit: Yes Status: Acute Code(s): K62.5 - HEMORRHAGE OF ANUS AND RECTUM SNOMED Code(s): 66889888
--- NOTE | 2020-11-12 09:52 | P.PCN ---
Date of Procedure: 11/12/20 Procedure(s) Performed: PREOPERATIVE DIAGNOSIS: Rectal bleeding, anemia POSTOPERATIVE DIAGNOSIS: Normal exam PROCEDURE: Colonoscopy ANESTHESIA: MAC SURGEON: Sam Mosley M.D. SPECIMENS: None ENDOSCOPIC PROCEDURE: The patient was placed on the endoscopy table in the left decubitus position. The Olympus colonoscope was inserted into the anus and passed under direct visualization to the base of the cecum. The appendiceal orifice was visualized. From that point the scope was slowly withdrawn inspect ing all surfaces carefully. There were no neoplastic inflammatory or polypoid lesions throughout the cecum, ascending, transverse, descending, sigmoid and rectum. There was no visible diverticulosis noted. Digital rectal examination was normal. The patient was taken to the recovery room in stable condition per anesthesia guidelines. RECOMMENDATIONS: Resume diet. Continue anemia workup. Follow colonoscopy in 10 years.
[2020-11-12 10:15] VITALS: BP 106/73; PULSE 55
== END 2020-11-12 10:32 | disposition home or self-care (01) ==
LOC: ORWHC2ENDO 08:29
PROVIDERS: ATTEND Surgery
DX: K62.5 Hemorrhage of anus and rectum (principal); D64.9 Anemia, unspecified; E78.5 Hyperlipidemia, unspecified; E07.9 Disorder of thyroid, unspecified; Z79.899 Other long term (current) drug therapy; F31.9 Bipolar disorder, unspecified; Z88.5 Allergy status to narcotic agent; Z88.8 Allergy status to other drugs, medicaments and biological substances
CPT/HCPCS: 81025; J2704; G0121

== ENCOUNTER → 2021-02-10 | Outpatient (CLI) | payer OTHER ==
--- NOTE | 2021-02-12 13:24 | MM ---
Reason for exam: screening (asymptomatic). Last mammogram was performed 1 year and 1 month ago. History: Patient had first child at age 29. Took hormonal contraceptives for 16 years beginning at age 19. Physical Findings: A clinical breast exam by your physician is recommended on an annual basis and results should be correlated with mammographic findings. MG Screening Mammo w CAD Bilateral CC and MLO view(s) were taken. Prior study comparison: January 05, 2020, bilateral MG screening mammo w CAD. February 15, 2018, bilateral MG screening mammo w CAD. There are scattered fibroglandular densities. There is no discrete abnormality. No significant changes when compared with prior studies. ASSESSMENT: Negative, BI-RAD 1 RECOMMENDATION: Routine screening mammogram of both breasts in 1 year.
== END | disposition home or self-care (01) ==
LOC: RADMAMWWP 10:27
PROVIDERS: ATTEND Family Medicine
DX: Z12.31 Encounter for screening mammogram for malignant neoplasm of breast (principal)
CPT/HCPCS: 77067

== ENCOUNTER → 2021-04-03 | Outpatient (CLI) | payer OTHER ==
--- NOTE | 2021-04-03 17:52 | SFUN ---
SLEEP CENTER FOLLOW UP NOTE DATE OF SERVICE: 04/03/2021 This 50-year-old lady has been followed in Sleep Center for treatment of obstructive sleep apnea-hypopnea syndrome. Recently the patient had a polysomnogram which showed that she has obstructive sleep apnea. Then she had CPAP titration, her respiration normalized, and she received her CPAP machine. Today is her first visit after starting to use her CPAP unit. She is able to use it most of the nights and she feels better while she is using her machine. She sleeps better and feels better during the day. [place] Sleepiness Scale today is 7, which is normal. I checked her CPAP unit. Range of the pressure is 5 to 8, average 7.9, usage / nights for more than 4 hours, average 10.9 hours per night. Leak is 6 L/minute. Apnea- hypopnea index 2.8. Sometimes the patient experiences a dry mouth. Possibly she is opening her mouth. CURRENT MEDICATIONS: Lipitor, Latuda, oxybutynin, hydrochlorothiazide, Synthroid. PHYSICAL EXAMINATION: GENERAL: Pleasant patient in no distress. VITAL SIGNS: BP 112/80, HR 57, RR 14, weight 181.6, temperature 97.5, oxygen saturation at room air 98%. HEENT: PERRLA, EOMI, evaluation of oropharynx showed tongue protrudes midline. Extremely low position of soft palate; Mallampati IV. NECK: Supple, no JVD. Thyroid is not palpable. LUNGS: Clear to percussion and to auscultation. Good air exchange. No wheezing or rhonchi. HEART: S1, S2 regular. No murmurs, gallops, or rubs. ABDOMEN: Soft and nontender. Bowel sounds are present. No organomegaly appreciated. EXTREMITIES: No clubbing or cyanosis. WATER SYSTEMS ENGINEER: Awake, alert, and oriented X3. Cranial nerves 2 to 7 intact. There is no fasciculation or atrophy. noted. No focal deficits observed. IMPRESSION: 1. Obstructive sleep apnea-hypopnea syndrome. Patient demonstrated good compliance with treatment, benefitting from treatment. Normal respiration on CPAP. Sometimes dryness in the mouth. 2. No present complaints of periodic limb movements. 3. No recent aop-ed-olumj episodes. 4. Hypertension. 5. Bipolar disorder. 6. Hyperlipidemia. 7. Hypothyroidism. 8. History of overactive bladder. 9. Status post benign cyst removed from the scalp. 10.Status post x2. PLAN: 1. Prescription for chin strap. 2. Patient will continue to use PAP equipment every night for the whole night. 3. Sleep hygiene with regular time in bed for at least 7-1/2 to 8 hours. 4. Precautions related to driving. No driving if feeling sleepiness. 5. I will maintain all necessary prescription for PAP supplies including mask, tube, filters. 6. Watching weight. 7. Follow-up visit in 6 months or earlier if patient has any problems. Thank you very much for allowing me to participate in the management of your patient. Sincerely, Huber Llamas MD, PhD, FAASM Diplomat of [place] [employer] Sleep Medicine Board of [place] [employer] Patient Support Assistant of [facility] [place] BRIE / JUAN: [id number] /
== END | disposition home or self-care (01) ==
LOC: SLEEP 10:27
PROVIDERS: ATTEND Internal Medicine
DX: G47.33 Obstructive sleep apnea (adult) (pediatric) (principal); I10 Essential (primary) hypertension; F31.9 Bipolar disorder, unspecified; E78.5 Hyperlipidemia, unspecified; E03.9 Hypothyroidism, unspecified; Z98.890 Other specified postprocedural states

== ENCOUNTER 2021-09-16 19:26 | Inpatient (IN) | payer OTHER ==
--- NOTE | 2021-09-16 20:12 | ED ---
Psych HPI - General Chief Complaint: Psychiatric Symptoms Stated Complaint: Mental health Time Seen by Provider: 09/16/21 20:01 Source: patient, family, RN notes reviewed Mode of arrival: ambulatory - History of Present Illness Initial Comments: This is a pleasant 50-year-old female with a history of depression. She presents to the emergency department today complaining of worsening depression and suicidal thoughts. Patient does not have a specific plan but has abraded both forearms. Patient states she does have a history of this self mutilating behavior. She denies any other symptomology. No homicidality. No recent illness. Patient states she is taking her medications appropriately. No alcohol or drug abuse. Nonsmoker. No headache, no fever or chills, no changes in vision or hearing, no sore throat or difficulty with speech, no neck pain, no chest pain or shortness of breath, no abdominal pain, no nausea or vomiting, no changes in urination or bowel movements, no numbness or tingling, no extremity pain, no skin rashes or lesions. MD Complaint: suicidal ideation - Related Data Home Medications Medication Instructions Recorded Confirmed Levothyroxine Sodium [Synthroid] 125 mcg PO HS 09/16/21 09/17/21 Lurasidone [Latuda] 40 mg PO HS 09/16/21 09/17/21 Oxybutynin Chloride [Ditropan XL] 10 mg PO HS 09/16/21 09/17/21 Sertraline [Zoloft] 100 mg PO HS 09/16/21 09/17/21 Allergies Allergy/AdvReac Type Severity Reaction Status Date / Time bee venom protein (honey bee) Allergy Swelling Verified 09/17/21 00:39 @sting site prednisone Allergy Rash/Hives Verified 09/17/21 00:39 morphine AdvReac Nausea & Verified 09/17/21 00:39 Vomiting Oral Steroids Allergy Rash/Hives Uncoded 09/17/21 00:39 Review of Systems ROS Statement: Those systems with pertinent positive or pertinent negative responses have been documented in the HPI. ROS Other: All systems not noted in ROS Statement are negative. Past Medical History Past Medical History: Thyroid Disorder Additional Past Medical History / Comment(s): Hx. hypoglycemia, IBS, cyst on head History of Any Multi-Drug Resistant Organisms: None Reported Past Surgical History: Section Additional Past Surgical History / Comment(s): [place] teeth Past Anesthesia/Blood Transfusion Reactions: No Reported Reaction Past Psychological History: Bipolar, Depression Smoking Status: Never smoker Past Alcohol Use History: Occasional Past Drug Use History: None Reported - Past Family History Father Family Medical History: Coronary Artery Disease (CAD) General Exam - General Exam Comments Initial Comments: Healthy-appearing 50-year-old female in no acute distress. Patient does not appear to be ill or toxic. Doesn't appear to have a low mood but is alert and oriented 4. Cranial nerves II through XII grossly intact. Limitations: no limitations General appearance: alert, in no apparent distress Head exam: Present: atraumatic, normocephalic, normal inspection Eye exam: Present: normal appearance, PERRL, EOMI. Absent: scleral icterus, conjunctival injection, periorbital swelling ENT exam: Present: normal exam, mucous membranes moist Neck exam: Present: normal inspection, full ROM. Absent: tenderness, meningismus, lymphadenopathy Respiratory exam: Present: normal lung sounds bilaterally. Absent: respiratory distress, wheezes, rales, rhonchi, stridor Cardiovascular Exam: Present: regular rate, normal rhythm, normal heart sounds. Absent: systolic murmur, diastolic murmur, rubs, gallop, clicks GI/Abdominal exam: Present: soft, normal bowel sounds. Absent: distended, te nderness, guarding, rebound, rigid Extremities exam: Present: normal inspection, full ROM, normal capillary refill, other (Superficial abrasions to the volar aspect of both forearms. This involves only the epidermis. No bleeding.). Absent: tenderness, pedal edema, joint swelling, calf tenderness Back exam: Present: normal inspection, rash noted Neurological exam: Present: alert, oriented X3, CN II-XII intact Psychiatric exam: Present: normal affect, depressed, flat affect, other (Depressed). Absent: manic, homicidal ideation, suicidal ideation Skin exam: Present: warm, dry, intact, normal color. Absent: rash Course Vital Signs 09/16/21 19:43 Temperature 99.2 F Pulse Rate 83 Respiratory 16 Rate Blood Pressure 125/87 O2 Sat by Pulse 99 Oximetry Medical Decision Making - Medical Decision Making Patient does not appear to be physically ill. Patient admitting to suicidal ideation but no specific plan. Psychiatric evaluation initiated. - Lab Data Result diagrams: 09/17/21 08:14 09/17/21 08:14 Lab Results 09/16/21 09/16/21 Range/Units 20:23 22:52 Urine Color Light Yellow Urine Appearance Clear (Clear) Urine pH 6.0 (5.0-8.0) Ur Specific [place] 1.007 (1.001-1.035) Urine Protein Negative (Negative) Ur Protein Confirm Not Reportable Urine Glucose (UA) Negative (Negative) Urine Ketones Negative (Negative) Urine Blood Negative (Negative) Urine Nitrite Negative (Negative) Urine Bilirubin Negative (Negative) Ur Bilirubin Confirm Not Reportable Urine Urobilinogen <2.0 (<2.0) mg/dL Ur Leukocyte Esterase Negative (Negative) Urine Opiates Screen Not Detected (NotDetected) Ur Oxycodone Screen Not Detected (NotDetected) Urine Methadone Screen Not Detected (NotDetected) Ur Propoxyphene Screen Not Detected (NotDetected) Ur Barbiturates Screen Not Detected (NotDetected) U Tricyclic Antidepress Not Detected (NotDetected) Ur Phencyclidine Scrn Not Detected (NotDetected) Ur Amphetamines Screen Not Detected (NotDetected) U Methamphetamines Scrn Not Detected (NotDetected) U Benzodiazepines Scrn Not Detected (NotDetected) Urine Cocaine Screen Not Detected (NotDetected) U Marijuana (THC) Screen Not Detected (NotDetected) Coronavirus (PCR) Not Detected (Not Detectd) Disposition Clinical Impression: Suicidal ideation, Depression Disposition: ADMITTED IP TO THIS [facility] Condition: Stable
[2021-09-16 20:58] LABS: Amphetamine Screen,Urine Not Detected (NotDetected); Barbiturate Screen,Urine Not Detected (NotDetected); Benzodiazepines Screen,Urine Not Detected (NotDetected); Cocaine Screen,Urine Not Detected (NotDetected); Methadone Screen, Urine Not Detected (NotDetected); Opiate Screen,Urine Not Detected (NotDetected); Oxycodone Screen, Urine Not Detected (NotDetected); Phencyclidine Screen,Urine Not Detected (NotDetected); Tricyclic Antidepressant,Urine Not Detected (NotDetected); Urn Cannabinoid Scrn Not Detected (NotDetected)
[2021-09-16] MEDS ORDERED: MAGNESIUM HYDROXIDE 2,400 MG/10 ML CUP PO PRN (23:53)
[2021-09-16] MEDS ORDERED: LORazepam 1 MG TAB PO PRN (23:53)
[2021-09-16] MEDS ORDERED: ACETAMINOPHEN TAB 325 MG TAB PO PRN (23:53)
[2021-09-16] MEDS ORDERED: MAG HYDROX/AL HYDROX/SIMETH 30 ML CUP PO PRN (23:53)
[2021-09-16] MEDS ORDERED: HALOPERIDOL LACTATE 5 MG/ML 1 ML VIAL IM PRN (23:53)
[2021-09-16] MEDS ORDERED: traZODone HCL 50 MG TAB PO PRN (23:54)
[2021-09-16] MEDS ORDERED: LORazepam 2 MG/ML INJ IM PRN (23:54)
[2021-09-16] MEDS ORDERED: haloperidoL 5 MG TAB PO PRN (23:54)
[2021-09-17] MEDS: LEVOTHYROXINE 125 MCG TAB PO SCH ×2 (00:37→20:21)
[2021-09-17] MEDS: OXYBUTYNIN 10 MG TAB.ER.24 PO SCH ×2 (00:38→20:21)
[2021-09-17] MEDS: SERTRALINE 100 MG TAB PO SCH ×2 (00:38→20:21)
[2021-09-17 01:08] LABS: Appearance,Urine Clear (Clear); Bilirubin,Urine Negative (Negative); Blood,Urine Negative (Negative); Color,Urine Light Yellow; Glucose,Urine (UA) Negative (Negative); Ketones,Urine Negative (Negative); Leukocyte Esterase,Urine Negative (Negative); Nitrite,Urine Negative (Negative); Protein,Urine Negative (Negative); Specific Gravity,Urine 1.007 (1.001-1.035); Urobilinogen,Urine <2.0 mg/dL (<2.0)
[2021-09-17 08:49] LABS: Basophils # (A) 0.1 k/uL (0-0.2); Basophils % (A) 1 %; Eosinophils # (A) 0.4 k/uL (0-0.7); Eosinophils % (A) 7 %; HCT 47.5 % (34.0-46.0); HGB 14.8 gm/dL (11.4-16.0); Lymphocytes # (A) 1.2 k/uL (1.0-4.8); Lymphocytes % (A) 21 %; MCH 28.2 pg (25.0-35.0); MCHC 31.1 g/dL (31.0-37.0); MCV 90.6 fL (80.0-100.0); Mean Platelet Volume 6.6; Monocytes # (A) 0.4 k/uL (0-1.0); Monocytes % (A) 6 %; Neutrophils # (A) 3.6 k/uL (1.3-7.7); Neutrophils % (A) 63 %; Platelet Count 389 k/uL (150-450); RBC 5.25 m/uL (3.80-5.40); RDW 12.6 % (11.5-15.5); WBC 5.7 k/uL (3.8-10.6)
[2021-09-17 09:01] LABS: ALT 26 U/L (4-34); AST 26 U/L (14-36); African American GFR (CKD) 65 (>60 ml/min/1.73 sqM); Albumin 4.6 g/dL (3.5-5.0); Alkaline Phosphatase 78 U/L (38-126); Anion Gap 8 mmol/L; Blood Urea Nitrogen 17 mg/dL (7-17); Calcium 9.8 mg/dL (8.4-10.2); Carbon Dioxide 30 mmol/L (22-30); Chloride 100 mmol/L (98-107); Glucose 93 mg/dL (74-99); Non-African American GFR(CKD) 57 (>60 ml/min/1.73 sqM); Potassium 4.4 mmol/L (3.5-5.1); Sodium 138 mmol/L (137-145); Total Protein 8.3 g/dL (6.3-8.2)
--- NOTE | 2021-09-17 09:35 | P.HP ---
Psychiatric H&P - . H&P Date: 09/17/21 History & Physical: Allergies Allergy/AdvReac Type Severity Reaction Status Date / Time bee venom protein (honey bee) Allergy Swelling Verified 09/17/21 00:39 @sting site prednisone Allergy Rash/Hives Verified 09/17/21 00:39 morphine AdvReac Nausea & Verified 09/17/21 00:39 Vomiting Oral Steroids Allergy Rash/Hives Uncoded 09/17/21 00:39 Vital Signs Temp 97.3 F L 09/17/21 08:35 Pulse 100 09/17/21 08:35 Resp 18 09/17/21 08:35 BP 120/80 09/17/21 08:35 Pulse Ox 99 09/17/21 08:35 Intake & Output 09/16/21 09/17/21 09/17/21 18:59 06:59 18:59 Weight 88.082 kg Laboratory Last Values WBC 5.7 k/uL (3.8-10.6) 09/17/21 08:14 RBC 5.25 m/uL (3.80-5.40) 09/17/21 08:14 Hgb 14.8 gm/dL (11.4-16.0) 09/17/21 08:14 Hct 47.5 % (34.0-46.0) H 09/17/21 08:14 MCV 90.6 fL (80.0-100.0) 09/17/21 08:14 MCH 28.2 pg (25.0-35.0) 09/17/21 08:14 MCHC 31.1 g/dL (31.0-37.0) 09/17/21 08:14 RDW 12.6 % (11.5-15.5) 09/17/21 08:14 Plt Count 389 k/uL (150-450) 09/17/21 08:14 MPV 6.6 09/17/21 08:14 Neutrophils % 63 % 09/17/21 08:14 Lymphocytes % 21 % 09/17/21 08:14 Monocytes % 6 % 09/17/21 08:14 Eosinophils % 7 % 09/17/21 08:14 Basophils % 1 % 09/17/21 08:14 Neutrophils # 3.6 k/uL (1.3-7.7) 09/17/21 08:14 Lymphocytes # 1.2 k/uL (1.0-4.8) 09/17/21 08:14 Monocytes # 0.4 k/uL (0-1.0) 09/17/21 08:14 Eosinophils # 0.4 k/uL (0-0.7) 09/17/21 08:14 Basophils # 0.1 k/uL (0-0.2) 09/17/21 08:14 Sodium 138 mmol/L (137-145) 09/17/21 08:14 Potassium 4.4 mmol/L (3.5-5.1) 09/17/21 08:14 Chloride 100 mmol/L (98-107) 09/17/21 08:14 Carbon Dioxide 30 mmol/L (22-30) 09/17/21 08:14 Anion Gap 8 mmol/L 09/17/21 08:14 BUN 17 mg/dL (7-17) 09/17/21 08:14 Creatinine 1.12 mg/dL (0.52-1.04) H 09/17/21 08:14 Est GFR (CKD-EPI)AfAm 65 (>60 ml/min/1.73 sqM) 09/17/21 08:14 Est GFR (CKD-EPI)NonAf 57 (>60 ml/min/1.73 sqM) 09/17/21 08:14 Glucose 93 mg/dL (74-99) 09/17/21 08:14 Calcium 9.8 mg/dL (8.4-10.2) 09/17/21 08:14 Total Bilirubin 1.0 mg/dL (0.2-1.3) 09/17/21 08:14 AST 26 U/L (14-36) 09/17/21 08:14 ALT 26 U/L (4-34) 09/17/21 08:14 Alkaline Phosphatase 78 U/L (38-126) 09/17/21 08:14 Total Protein 8.3 g/dL (6.3-8.2) H 09/17/21 08:14 Albumin 4.6 g/dL (3.5-5.0) 09/17/21 08:14 TSH 0.980 mIU/L (0.465-4.680) 09/17/21 08:14 Urine Color Light Yellow 09/16/21 20:23 Urine Appearance Clear (Clear) 09/16/21 20:23 Urine pH 6.0 (5.0-8.0) 09/16/21 20: Ur Specific [place] 1.007 (1.001-1.035) 09/16/21 20:23 Urine Protein Negative (Negative) 09/16/21 20: Ur Protein Confirm Not Reportable 09/16/21 20: Urine Glucose (UA) Negative (Negative) 09/16/21 20: Urine Ketones Negative (Negative) 09/16/21 20: Urine Blood Negative (Negative) 09/16/21 20: Urine Nitrite Negative (Negative) 09/16/21 20: Urine Bilirubin Negative (Negative) 09/16/21 20: Ur Bilirubin Confirm Not Reportable 09/16/21 20: Urine Urobilinogen <2.0 mg/dL (<2.0) 09/16/21 20: Ur Leukocyte Esterase Negative (Negative) 09/16/21 20: Urine Opiates Screen Not Detected (NotDetected) 09/16/21 20:23 Ur Oxycodone Screen Not Detected (NotDetected) 09/16/21 20:23 Urine Methadone Screen Not Detected (NotDetected) 09/16/21 20:23 Ur Propoxyphene Screen Not Detected (NotDetected) 09/16/21 20:23 Ur Barbiturates Screen Not Detected (NotDetected) 09/16/21 20:23 U Tricyclic Antidepress Not Detected (NotDetected) 09/16/21 20:23 Ur Phencyclidine Scrn Not Detected (NotDetected) 09/16/21 20:23 Ur Amphetamines Screen Not Detected (NotDetected) 09/16/21 20:23 U Methamphetamines Scrn Not Detected (NotDetected) 09/16/21 20:23 U Benzodiazepines Scrn Not Detected (NotDetected) 09/16/21 20:23 Urine Cocaine Screen Not Detected (NotDetected) 09/16/21 20:23 U Marijuana (THC) Screen Not Detected (NotDetected) 09/16/21 20:23 Coronavirus (PCR) Not Detected (Not Detectd) 09/16/21 22:52 09/17/21 09:29 IDENTIFYING DATA: Patient is a 50-year-old female with a history of bipolar disorder, who currently lives with her in a house has 1 daughter and 1 son and is currently unemployed. HPI: Patient presented to the hospital yesterday with complaints of depression which has been increasing and suicidal ideations however had no plan. Patient was also found in the ER to have abrasions on her forearms. Patient was admitted voluntarily. She has a history of bipolar depression and was last psychiatrically hospitalized over a year ago on the mental health unit. Patient claims that she has been taking her medications as prescribed including latuda and Zoloft. She apparently has not been following up at [facility] with her psychiatrist and has been going to her PCP. She states that she has progressively gotten worse and had a "another depressive episode". She states that she was recently in [place] and return back last week. She states that she was on a mission trip however it was a "struggle". She is fairly concrete guarded and evasive about her stressors. She denied any direct triggers from her home life or interpersonal relationships. 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 She states that it was a lot of physical labor. She claims that she has been s leeping "too much". She states that her appetite has been fair. Patient denies any current suicidal or homicidal ideations intent or plan. At this time patient denies any auditory or visual hallucinations. Patient denies any flight of ideas racing thoughts and increased in goal directed behavior. She denies any recent history of manic episodes however has had them in the past. Patient admits to using no recreational drugs or cigarettes. PAST PSYCHIATRIC HISTORY: Patient states that she has a history of bipolar disorder and depression. She was previously on latuda and Zoloft. She claims that she has had several hospitalizations in the past and her last hospitalization was in July 2020 on the mental health unit. She claims that she follows up with Dr. Nice who is her psychiatrist at [facility] ever has not been following up with her any longer and been going to her PCP for her medications. She states that she had 1 suicide attempt in December 2019 when she attempted to overdose after resigning from her job. PMH: Thyroid disorder and IBS ALLERGIES: as per EMR CHEMICAL DEPENDENCY HISTORY: as per HPI FAMILY PSYCHIATRIC/SUBSTANCE USE HISTORY: She states that her sister suffers from depression and also her mother. SOCIAL HISTORY: Patient was born and raised in [facility] and states that she grew up in [place]. She states that she completed college degree in biology in [place]. She claims that she was an [employer] non-combat from [phone]. She states that she currently lives with her and daughter in a house and has 1 son who is in college. She denies any legal history. MENTAL STATUS EXAM: General Appearance: Patient appears to be overweight, short hair, wearing glasses, stated age is alert, directable, constricted and concrete. Guarded. Patient appears to have poor hygiene and grooming. Behavior: Patient is seated without any agitated behavior. Guarded. Evasive and guarded. Speech: Patient's speech is fluent and nonpressured. Monotone. [place]. Mood/Affect: Patient reports their mood is depressed, affect is congruent and flat affect. Suicidality/Homicidality: Patient denies having any homicidal ideation intent or plan. Denies any suicidal ideations intent or plan Perceptions: Patient denies any visual hallucinations and denies any auditory hallucinations Though content/process: There is no evidence of any delusional thought content and thought process is linear and goal-directed. Poverty of content. Memory and concentration: AOX3, grossly intact for the purposes of this session. Can spell "WORLD" backwards Judgment and insight: poor STRENGTHS/WEAKNESSES: strength is that patient is resilient. Weakness is that patient has poor judgment and is impulsive INTELLECT: average IMPRESSIONS: Bipolar disorder, currently depressed Anxiety disorder unspecified PLAN: -Patient is admitted under voluntary status to MHU for stabilization of psychiatric symptoms and safety. Patient has signed adult voluntary form and medication consent and is placed in patient's chart. -Medications : Will start patient on latuda 40mg at 6pm with food/dinner for bipolar depression. patient was taking this medication at night time and not taking it with food. machine sign writer informed patient of the need to take the med with her meal to help with absorption. restarted zoloft 100mg qhs for anxiety and mood. trazodone 50 qhs prn for insomnia -Ativan and Haldol PRN for agitation/aggression -Patient was informed of the risks, benefits and side effects of the medication and patient verbally consented to taking the medications. Patient signed med consent form and was placed in chart. -Internal Medicine consult to perform medical evaluation and physical. -NRT - not needed as patient does not smoke -SW on board for discharge planning. Encourage patient to participate in groups to work on coping skills.
--- NOTE | 2021-09-17 10:30 | P.CONS ---
History of Present Illness - Reason for Consult Medical clearance - History of Present Illness 50-year-old pleasant female admitted to psychiatric floor and was admitted voluntarily for management of her psychiatric problems. Patient denied any symptoms at this time patient in future as nausea vomiting abdominal pain dysuria. REVIEW OF SYSTEMS: CONSTITUTIONAL: No fever, no malaise, no fatigue. HEENT: No recent visual problems or hearing problems. Denied any sore throat. CARDIOVASCULAR: No chest pain, orthopnea, PND, no palpitations, no syncope. PULMONARY: No shortness of breath, no cough, no hemoptysis. GASTROINTESTINAL: No diarrhea, no nausea, no vomiting, no abdominal pain. NEUROLOGICAL: No headaches, no weakness, no numbness. HEMATOLOGICAL: Denies any bleeding or petechiae. GENITOURINARY: Denies any burning micturition, frequency, or urgency. MUSCULOSKELETAL/RHEUMATOLOGICAL: Denies any joint pain, swelling, or any muscle pain. ENDOCRINE: Denies any polyuria or polydipsia. The rest of the 14-point review of systems is negative. PHYSICAL EXAMINATION: GENERAL: The patient is alert and oriented x3, not in any acute distress. Well developed, well nourished. HEENT: Pupils are round and equally reacting to light. EOMI. No scleral icterus. No conjunctival pallor. Normocephalic, atraumatic. No pharyngeal erythema. No thyromegaly. CARDIOVASCULAR: S1 and S2 present. No murmurs, rubs, or gallops. PULMONARY: Chest is clear to auscultation, no wheezing or crackles. ABDOMEN: Soft, nontender, nondistended, normoactive bowel sounds. No palpable organomegaly. MUSCULOSKELETAL: No joint swelling or deformity. EXTREMITIES: No cyanosis, clubbing, or pedal edema. NEUROLOGICAL: Gross neurological examination did not reveal any focal deficits. SKIN: No rashes. Assessment and plan Hyperthyroidism continue with levothyroxine -Possible history of urinary incontinence for which patient is on oxybutynin which will be continued -Bipolar disorder and acute psychosis management as per primary service Past Medical History Past Medical History: Thyroid Disorder Additional Past Medical History / Comment(s): Hx. hypoglycemia, IBS, cyst on head History of Any Multi-Drug Resistant Organisms: None Reported Past Surgical History: Section Additional Past Surgical History / Comment(s): [place] teeth Past Anesthesia/Blood Transfusion Reactions: No Reported Reaction Past Psychological History: Bipolar, Depression Smoking Status: Never smoker Past Alcohol Use History: Occasional Past Drug Use History: None Reported - Past Family History Father Family Medical History: Coronary Artery Disease (CAD) Medications and Allergies Home Medications Medication Instructions Recorded Confirmed Type Levothyroxine Sodium [Synthroid] 125 mcg PO HS 09/16/21 09/17/21 History Lurasidone [Latuda] 40 mg PO HS 09/16/21 09/17/21 History Oxybutynin Chloride [Ditropan XL] 10 mg PO HS 09/16/21 09/17/21 History Sertraline [Zoloft] 100 mg PO HS 09/16/21 09/17/21 History Allergies Allergy/AdvReac Type Severity Reaction Status Date / Time bee venom protein (honey bee) Allergy Swelling Verified 09/17/21 00:39 @sting site prednisone Allergy Rash/Hives Verified 09/17/21 00:39 morphine AdvReac Nausea & Verified 09/17/21 00:39 Vomiting Oral Steroids Allergy Rash/Hives Uncoded 09/17/21 00:39 Physical Exam Vitals: Vital Signs Temp Pulse Pulse Resp BP BP Pulse Ox 09/17/21 08:35 97.3 F L 100 18 120/80 99 09/17/21 00:19 97.3 F L 73 15 129/93 96 09/16/21 19:43 99.2 F 83 16 125/87 99 Intake and Output 09/16/21 09/17/21 09/17/21 22:59 06:59 14:59 Other: Weight 89.358 kg 88.082 kg Results CBC & Chem 7: 09/17/21 08:14 09/17/21 08:14 Labs: Abnormal Lab Results - Last 24 Hours (Table) 09/17/21 09/17/21 Range/Units 08:14 08:14 Hct 47.5 H (34.0-46.0) % Creatinine 1.12 H (0.52-1.04) mg/dL Total Protein 8.3 H (6.3-8.2) g/dL
[2021-09-17 14:38] LABS: Chol/HDL Ratio 3.76 Ratio; LDL Cholesterol,Calculated 185.9 mg/dL (0.0-131.0)
[2021-09-17] MEDS ORDERED: LURASIDONE 40 MG TAB PO SCH (16:00)
[2021-09-17] MEDS: LURASIDONE 40 MG TAB PO SCH (17:53)
[2021-09-18 07:06] VITALS: RESP 16
--- NOTE | 2021-09-18 11:59 | P.PN ---
Progress Note - Text Progress Note Date: 09/18/21 Interval History: Patient was seen wandering the hallways and was directable and agreeable to speak with contract technical writer in the office. The patient reports that she continues to experience depression. She is currently not reporting any suicidal ideation however states that if her depression continues, she can see how she would be more suicidal. She expresses that this is mainly in relation to her not working in her career field. She states that she recently lost her job over the past year and that she has had difficulty adjusting and finding out her purpose. She is otherwise adherent with her medications and is not reporting any side effects at this time. She reports no issues regarding her sleep or her appetite. She reports no auditory or visual hallucinations. She denies any paranoia or other delusions. Mental Status Exam: General Appearance: Patient appears to be stated age is alert, directable, and cooperative. Behavior: Patient is calmly seated without any agitated behavior. Speech: Patient's speech is fluent and nonpressured. Mood/Affect: Mood is improving mildly, affect is congruent and constricted. Suicidality/Homicidality: Patient denies having any suicidal or homicidal ideation intent or plan. Perceptions: Patient denies any visual hallucinations and denies any auditory hallucinations Though content/process: There is no evidence of any delusional thought content and thought process is linear and goal-directed. Memory and concentration: AOX3, grossly intact for the purposes of this session Judgment and insight: Improving mildly Vital Signs Temp 97.9 F 09/18/21 06:47 Pulse 64 09/18/21 06:47 Resp 16 09/18/21 06:47 BP 121/67 09/18/21 06:47 Pulse Ox 99 09/17/21 08:35 Laboratory Results - Last 24 Hours 09/17/21 08:14 Triglycerides 135.00 Cholesterol 290.00 H LDL Cholesterol, Calc 185.9 H VLDL Cholesterol, Calc 27.00 HDL Cholesterol 77.10 H Cholesterol/HDL Ratio 3.76 Assessment Bipolar disorder, currently depressed Anxiety disorder unspecified Plan: -Patient continues to meet criteria for inpatient psychiatric admission for symptom stabilization and safety. Patient has signed adult voluntary form and medication consent and was placed in patient's chart. -Medications: Continue Latuda 40 mg by mouth every 6 p.m. with food for bipolar depression Continue Zoloft 100 mg by mouth at bedtime for depression/anxiety Continue trazodone 50 mg by mouth at bedtime when necessary for insomnia -When necessary Ativan and Haldol for agitation/aggression. -SW on board for discharge planning. Encouraged the patient to participate in milieu.
[2021-09-18] MEDS: LURASIDONE 40 MG TAB PO SCH (16:46)
[2021-09-18] MEDS: SERTRALINE 100 MG TAB PO SCH (20:31)
[2021-09-18] MEDS: OXYBUTYNIN 10 MG TAB.ER.24 PO SCH (20:31)
[2021-09-18] MEDS: LEVOTHYROXINE 125 MCG TAB PO SCH (20:31)
--- NOTE | 2021-09-19 16:21 | P.PN ---
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 back there since I cannot carry a firearm anymore because of my mental illness I have been hospitalized 4 times in the last time was about 13 months ago This has definitely ruined my career Objective data: Patient is appropriately groomed and dressed Affect at this time appears to be fair Responses were appropriate Speech was of regular rate and rhythm Patient denies any suicidal or homicidal ideations or plans Thought processes were goal-directed sequential and logical Patient self-esteem and confidence however are low Patient's formal and operational judgment seems to be improving Insight into her problem is fair Plan: Patient has started to improve with a current medication management and supportive care Patient seems to be resolving the suicidal ideations although she is does exhibit significant self-loathing and her self-esteem and confidence are very poor which makes her still at high risk to herself Patient is not experiencing any side effects from latuda Zoloft or trazodone and we will continue the same Continue supportive care and milieu therapy Continue assertiveness training and positive reinforcement and sublimation into other constructive activities Saurabh Barahona M.D. 09/19/2021 Objective - Vital Signs Vital signs: Vital Signs Temp 97.9 F 09/18/21 06:47 Pulse 64 09/18/21 06:47 Resp 16 09/18/21 06:47 BP 121/67 09/18/21 06:47 Pulse Ox 99 09/17/21 08:35 - Labs CBC & Chem 7: 09/17/21 08:14 09/17/21 08:14
[2021-09-19] MEDS: LURASIDONE 40 MG TAB PO SCH (17:58)
[2021-09-19] MEDS: OXYBUTYNIN 10 MG TAB.ER.24 PO SCH (20:32)
[2021-09-19] MEDS: LEVOTHYROXINE 125 MCG TAB PO SCH (20:32)
[2021-09-19] MEDS: SERTRALINE 100 MG TAB PO SCH (20:32)
--- NOTE | 2021-09-20 11:27 | P.PN ---
Subjective Progress Note Date: 09/20/21 Principal diagnosis: Bipolar disorder depressed type Anxiety disorder unspecified Subjective data: I'm doing okay I don't know how things will go in the long run though Objective data: Patient is appropriately groomed and dressed Affect at this time appears to be fair Responses were appropriate Speech was of regular rate and rhythm Patient denies any suicidal or homicidal ideations or plans Thought processes were goal-directed sequential and logical Patient self-esteem and confidence however are low Patient however comes across as feeling dejected and somewhat hopeless Plan: Patient comes across as more dejected and helpless Self-esteem and confidence are low Continue supportive care and milieu therapy Continue assertiveness training and positive reinforcement and sublimation into other constructive activities Saurabh Barahona M.D. 09/20/2021 Objective - Vital Signs Vital signs: Vital Signs Temp 97.9 F 09/18/21 06:47 Pulse 64 09/18/21 06:47 Resp 16 09/18/21 06:47 BP 121/67 09/18/21 06:47 Pulse Ox 99 09/17/21 08:35 - Labs CBC & Chem 7: 09/17/21 08:14 09/17/21 08:14
[2021-09-20] MEDS: LURASIDONE 40 MG TAB PO SCH (18:04)
[2021-09-20] MEDS: SERTRALINE 100 MG TAB PO SCH (20:54)
[2021-09-20] MEDS: LEVOTHYROXINE 125 MCG TAB PO SCH (20:54)
[2021-09-20] MEDS: OXYBUTYNIN 10 MG TAB.ER.24 PO SCH (20:54)
--- NOTE | 2021-09-21 09:49 | P.PN ---
Subjective Progress Note Date: 09/21/21 Principal diagnosis: Bipolar disorder depressed type Anxiety disorder unspecified Subjective data: Patient states that she is doing much better Patient was seen in their lounge where she was working on a puzzle She states that she is having a good day and is feeling a lot more cheerful She denies that she is having any suicidal or homicidal ideations Objective data: Patient is appropriately groomed and dressed Affect at this time appears to be fair Responses were appropriate Speech was of regular rate and rhythm Patient denies any suicidal or homicidal ideations or plans Thought processes were goal-directed sequential and logical This appears to be in direct contrast to the previous day where she was helpless and hopeless and appears to be experiencing significant mood swings ranging from severe dysphoria and helplessness and hopelessness to relatively feeling much better this morning Subjective this is due to actual improvement or patient experiencing mood swings and rapid cycling Plan: Continue current care and support and close observation Monitor for rapid cycling Continue supportive care and milieu therapy Continue assertiveness training and positive reinforcement and sublimation into other constructive activities [facility] Objective - Vital Signs Vital signs: Vital Signs Temp 97.7 F 09/21/21 06:45 Pulse 68 09/21/21 06:45 Resp 16 09/21/21 06:45 BP 109/70 09/21/21 06:45 Pulse Ox 99 09/17/21 08:35 Intake & Output 09/20/21 09/21/21 09/21/21 18:59 06:59 18:59 Weight 90.4 kg - Labs CBC & Chem 7: 09/17/21 08:14 09/17/21 08:14
[2021-09-21] MEDS: LURASIDONE 40 MG TAB PO SCH (17:04)
[2021-09-21] MEDS: LEVOTHYROXINE 125 MCG TAB PO SCH (20:50)
[2021-09-21] MEDS: OXYBUTYNIN 10 MG TAB.ER.24 PO SCH (20:50)
[2021-09-21] MEDS: SERTRALINE 100 MG TAB PO SCH (20:50)
[2021-09-22 06:54] VITALS: BP 139/73; PULSE 66; TEMP 97.6
--- NOTE | 2021-09-22 11:16 | P.DS ---
Providers Date of admission: 09/16/21 23:49 Expected date of discharge: 09/22/21 Attending physician: Severo Villa MD Consults: 09/16/21 23:53 Consult Physician Routine Consulting Provider: Ismael Talley Consult Reason/Comments: H&P and medical Do you want consulting provider notified?: Yes Primary care physician: Michael Little - Discharge Diagnosis(es) (1) Bipolar disorder current episode depressed Current Visit: Yes Status: Acute Priority: High (2) Anxiety disorder Current Visit: Yes Status: Acute Priority: Medium Hospital Course: Admission HPI: Admission note was completed by policy writer typist "Patient is a 50-year-old female with a history of bipolar disorder, who currently lives with her in a house has 1 daughter and 1 son and is currently unemployed. Patient presented to the hospital yesterday with complaints of depression which has been increasing and suicidal ideations however had no plan. Patient was also found in the ER to have abrasions on her forearms. Patient was admitted voluntarily. She has a history of bipolar depression and was last psychiatrically hospitalized over a year ago on the mental health unit. Patient claims that she has been taking her medications as prescribed including latuda and Zoloft. She apparently has not been following up at [facility] with her psychiatrist and has been going to her PCP. She states that she has progressively gotten worse and had a "another depressive episode". She states that she was recently in [place] and return back last week. She states that she was on a mission trip however it was a "struggle". She is fairly concrete guarded and evasive about her stressors. She denied any direct triggers from her home life or interpersonal relationships. She states that the trip to [place] with me mainly for "mission work" and was arranged through her worship. She states that it was a lot of physical labor. She claims that she has been sleeping "too much". She states that her appetite has been fair. Patient denies any current suicidal or homicidal ideations intent or plan. At this time patient denies any auditory or visual hallucinations. Patient denies any flight of ideas racing thoughts and increased in goal directed behavior. She denies any recent history of manic episodes however has had them in the past. Patient admits to using no recreational drugs or cigarettes." Hospital course: Upon admission to the unit patient was directable and agreeable to commence treatment and signed adult voluntary form. Patient got along well with other patients on the unit and followed unit protocol. Patient was compliant with the medications and denied any side effects throughout hospital course. Patient was started on latuda and increased to a dose of 40 mg daily with dinner. Patient was also started on Zoloft 100 mg daily at bedtime for mood/anxiety. Patient spoke of her stressors and engaged in therapy both group and individual. Patient was also seen by medical team for history and physical exam. Throughout the course of the hospitalization patient gradually improved with regards to mood, anxiety, sleep and became more future oriented with improved insight and judgment. On the day of discharge patient denied any suicidal or homicidal ideations intent or plan denied any auditory or visual hallucinations. Patient endorsed wanting to live for her health and her family. Patient denied any paranoia and did not endorse any delusions. Patient does not have a significant history of substance abuse however was counseled on abstaining from all sub stances including alcohol and marijuana. Patient was also counseled on the medications and need for regular compliance and was encouraged to follow-up with their outpatient appointment for mental health and also for primary care. Prior to discharge a family meeting will be arranged by public health social worker to answer any questions and ensure safety upon discharge. Mental status exam: General Appearance: Patient appears to be overweight, stated age is alert, pleasant, and cooperative. Patient is in no acute distress and has improved hygiene and grooming Behavior: Patient is calmly seated without any agitated behavior. Speech: Patient's speech is fluent and nonpressured. Mood/Affect: Patient reports their mood is "good", affect is congruent and euthymic. Suicidality/Homicidality: Patient denies having any suicidal or homicidal ideation intent or plan. Perceptions: Patient denies any auditory or visual hallucinations. Though content/process: There is no evidence of any delusional thought content and thought process is linear and goal-directed. more future oriented Memory and concentration: AOX3, grossly intact for the purposes of this session. Can spell "WORLD" backwards correctly. Judgment and insight: improved with guarded prognosis Impression: Bipolar disorder, current episode depressed Anxiety disorder unspecified Plan: -Continue with discharge today as patient has improved and stabilized psychiatrically and is not currently an imminent threat to herself and/or others. -Continue medications: latuda 40 mg daily with dinner for mood stabilization/depression, Zoloft 100 mg daily at bedtime for mood/anxiety. -Patient was counseled on the need for medication compliance and appropriate follow-up at mental health and also primary care for medical issues. Patient verbalized understanding and agreed. -Social work to arrange for and conduct family meeting to ensure safety upon discharge and answer any questions/concerns. Social work also to arrange for patients follow up appointments for psychiatric care along with follow up with primary care provider. -Patient counseled on abstaining from recreational drugs and marijuana and alcohol. Was informed/educated on the adverse effects on their physical and mental health. Patient verbally agreed and understood. -Patient was instructed to return to the hospital or seek immediate medical care if their psychiatric or medical symptoms do worsen or reoccur. Allergies Allergy/AdvReac Type Severity Reaction Status Date / Time bee venom protein (honey bee) Allergy Swelling Verified 09/17/21 00:39 @sting site prednisone Allergy Rash/Hives Verified 09/17/21 00:39 morphine AdvReac Nausea & Verified 09/17/21 00:39 Vomiting Oral Steroids Allergy Rash/Hives Uncoded 09/17/21 00:39 Laboratory Results WBC 5.7 k/uL (3.8-10.6) 09/17/21 08:14 RBC 5.25 m/uL (3.80-5.40) 09/17/21 08:14 Hgb 14.8 gm/dL (11.4-16.0) 09/17/21 08:14 Hct 47.5 % (34.0-46.0) H 09/17/21 08:14 MCV 90.6 fL (80.0-100.0) 09/17/21 08:14 MCH 28.2 pg (25.0-35.0) 09/17/21 08:14 MCHC 31.1 g/dL (31.0-37.0) 09/17/21 08:14 RDW 12.6 % (11.5-15.5) 09/17/21 08:14 Plt Count 389 k/uL (150-450) 09/17/21 08:14 MPV 6.6 09/17/21 08:14 Neutrophils % 63 % 09/17/21 08:14 Lymphocytes % 21 % 09/17/21 08:14 Monocytes % 6 % 09/17/21 08:14 Eosinophils % 7 % 09/17/21 08:14 Basophils % 1 % 09/17/21 08:14 Neutrophils # 3.6 k/uL (1.3-7.7) 09/17/21 08:14 Lymphocytes # 1.2 k/uL (1.0-4.8) 09/17/21 08:14 Monocytes # 0.4 k/uL (0-1.0) 09/17/21 08:14 Eosinophils # 0.4 k/uL (0-0.7) 09/17/21 08:14 Basophils # 0.1 k/uL (0-0.2) 09/17/21 08:14 Sodium 138 mmol/L (137-145) 09/17/21 08:14 Potassium 4.4 mmol/L (3.5-5.1) 09/17/21 08:14 Chloride 100 mmol/L (98-107) 09/17/21 08:14 Carbon Dioxide 30 mmol/L (22-30) 09/17/21 08:14 Anion Gap 8 mmol/L 09/17/21 08:14 BUN 17 mg/dL (7-17) 09/17/21 08:14 Creatinine 1.12 mg/dL (0.52-1.04) H 09/17/21 08:14 Est GFR (CKD-EPI)AfAm 65 (>60 ml/min/1.73 sqM) 09/17/21 08:14 Est GFR (CKD-EPI)NonAf 57 (>60 ml/min/1.73 sqM) 09/17/21 08:14 Glucose 93 mg/dL (74-99) 09/17/21 08:[address] Glu mg/dL 110 09/17/21 08:14 Hemoglobin A1c 5.5 % (0.0-6.0) 09/17/21 08:14 Calcium 9.8 mg/dL (8.4-10.2) 09/17/21 08:14 Total Bilirubin 1.0 mg/dL (0.2-1.3) 09/17/21 08:14 AST 26 U/L (14-36) 09/17/21 08:14 ALT 26 U/L (4-34) 09/17/21 08:14 Alkaline Phosphatase 78 U/L (38-126) 09/17/21 08:14 Total Protein 8.3 g/dL (6.3-8.2) H 09/17/21 08:14 Albumin 4.6 g/dL (3.5-5.0) 09/17/21 08:14 Triglycerides 135.00 mg/dL (0.00-149.00) 09/17/21 08:14 Cholesterol 290.00 mg/dL (0.00-200.00) H 09/17/21 08:14 LDL Cholesterol, Calc 185.9 mg/dL (0.0-131.0) H 09/17/21 08:14 VLDL Cholesterol, Calc 27.00 mg/dL (5.00-40.00) 09/17/21 08:14 HDL Cholesterol 77.10 mg/dL (40.00-60.00) H 09/17/21 08:14 Cholesterol/HDL Ratio 3.76 Ratio 09/17/21 08:14 TSH 0.980 mIU/L (0.465-4.680) 09/17/21 08:14 Urine Color Light Yellow 09/16/21 20: Urine Appearance Clear (Clear) 09/16/21 20: Urine pH 6.0 (5.0-8.0) 09/16/21 20:23 Ur Specific [place] 1.007 (1.001-1.035) 09/16/21 20: Urine Protein Negative (Negative) 09/16/21 20: Ur Protein Confirm Not Reportable 09/16/21 20: Urine Glucose (UA) Negative (Negative) 09/16/21 20: Urine Ketones Negative (Negative) 09/16/21 20: Urine Blood Negative (Negative) 09/16/21 20: Urine Nitrite Negative (Negative) 09/16/21 20: Urine Bilirubin Negative (Negative) 09/16/21 20: Ur Bilirubin Confirm Not Reportable 09/16/21 20: Urine Urobilinogen <2.0 mg/dL (<2.0) 09/16/21 20: Ur Leukocyte Esterase Negative (Negative) 09/16/21 20:23 Urine Opiates Screen Not Detected (NotDetected) 09/16/21 20: Ur Oxycodone Screen Not Detected (NotDetected) 09/16/21 20:23 Urine Methadone Screen Not Detected (NotDetected) 09/16/21 20:23 Ur Propoxyphene Screen Not Detected (NotDetected) 09/16/21 20:23 Ur Barbiturates Screen Not Detected (NotDetected) 09/16/21 20:23 U Tricyclic Antidepress Not Detected (NotDetected) 09/16/21 20:23 Ur Phencyclidine Scrn Not Detected (NotDetected) 09/16/21 20:23 Ur Amphetamines Screen Not Detected (NotDetected) 09/16/21 20:23 U Methamphetamines Scrn Not Detected (NotDetected) 09/16/21 20:23 U Benzodiazepines Scrn Not Detected (NotDetected) 09/16/21 20:23 Urine Cocaine Screen Not Detected (NotDetected) 09/16/21 20:23 U Marijuana (THC) Screen Not Detected (NotDetected) 09/16/21 20:23 Coronavirus (PCR) Not Detected (Not Detectd) 09/16/21 22:52 Vital Signs Temp 97.6 F 09/22/21 06:25 Pulse 66 09/22/21 06:25 Resp 16 09/22/21 06:25 BP 139/73 09/22/21 06:25 Pulse Ox 99 09/17/21 08:35 Intake & Output 09/21/21 09/22/21 09/22/21 18:59 06:59 18:59 Weight 90.4 kg Patient Condition at Discharge: Stable Plan - Discharge Summary New Discharge Prescriptions: Continue Oxybutynin Chloride [Ditropan XL] 10 mg PO HS Sertraline [Zoloft] 100 mg PO HS 30 Days tab Levothyroxine Sodium [Synthroid] 125 mcg PO HS Changed Lurasidone [Latuda] 40 mg PO 1800 30 Days tab Discharge Medication List Levothyroxine Sodium [Synthroid] 125 mcg PO HS 09/16/21 [History] Oxybutynin Chloride [Ditropan XL] 10 mg PO HS 09/16/21 [History] Lurasidone [Latuda] 40 mg PO 1800 30 Days tab 09/22/21 [Rx] Sertraline [Zoloft] 100 mg PO HS 30 Days tab 09/22/21 [Rx] Follow up Appointment(s)/Referral(s): Michael Little DO [Primary Care Provider] - 1-2 days Activity/Diet/Wound Care/Special Instructions: Activity and diet as tolerated. Avoid the use of street drugs and alcohol. Take all medications as prescribed. When you are in need of refills on your medications please contact your medical provider and/or outpatient psychiatrist to have this done. Please go to scheduled outpatient appointment for aftercare treatment. If symptoms return or become worse, call the crisis line at and/or go to the nearest emergency room for evaluation Discharge Disposition: HOME SELF-CARE
== END 2021-09-22 16:30 | disposition home or self-care (01) | DRG 885 ==
LOC: EC 19:26 → 3MHU 23:49
PROVIDERS: ADMIT Psychiatry & Neurology Psychiatry; ATTEND Psychiatry & Neurology Psychiatry
DX: F31.5 Bipolar disorder, current episode depressed, severe, with psychotic features (principal); R45.851 Suicidal ideations; E05.90 Thyrotoxicosis, unspecified without thyrotoxic crisis or storm; E66.3 Overweight; F41.9 Anxiety disorder, unspecified; Z79.890 Hormone replacement therapy; F19.11 Other psychoactive substance abuse, in remission; R32 Unspecified urinary incontinence; Z79.899 Other long term (current) drug therapy; Z81.8 Family history of other mental and behavioral disorders; Z82.49 Family history of ischemic heart disease and other diseases of the circulatory system; Z91.51 Personal history of suicidal behavior; Z20.822 Contact with and (suspected) exposure to COVID-19; Z88.5 Allergy status to narcotic agent; Z88.8 Allergy status to other drugs, medicaments and biological substances; Z91.030 Bee allergy status; Z98.890 Other specified postprocedural states; Z71.51 Drug abuse counseling and surveillance of drug abuser; Z68.35 Body mass index [BMI] 35.0-35.9, adult
CPT/HCPCS: 80053; 80061; 80306; 81003; 82075; 83036; 84443; 85025; 87635; 99285

== ENCOUNTER → 2022-03-27 | Outpatient (CLI) | payer OTHER ==
--- NOTE | 2022-03-31 03:35 | MM ---
Reason for Exam: Screening (asymptomatic). Last mammogram was performed 1 year(s) and 2 month(s) ago. Patient History: Menarche at age 13. First Full-Term at age 29. Late child-bearing (after 28). Hormonal Contraceptives for 16 years from age 19 until age 36. Last menstrual period: 03/08/2022 Risk Values: Liyah 5 year model risk: 1.4%. NCI Lifetime model risk: 10.6%. Prior Study Comparison: 02/15/2018 Bilateral Screening Mammogram, [facility]. 01/05/2020 Bilateral Screening Mammogram, [facility]. 02/10/2021 Bilateral Screening Mammogram, [facility]. Tissue Density: There are scattered fibroglandular densities. Findings: Analyzed By CAD. There is no suspicious group of microcalcifications or new suspicious mass in either breast. Stable benign round calcifications within the posterior left breast. Overall Assessment: Benign, BI-RAD 2 Management: Screening Mammogram of both breasts in 1 year. A clinical breast exam by your physician is recommended on an annual basis and results should be correlated with mammographic findings. Electronically signed and approved by: Jose C Rogers D.O.
== END | disposition home or self-care (01) ==
LOC: RADMAMWWP 07:11
PROVIDERS: ATTEND Family Medicine
DX: Z12.31 Encounter for screening mammogram for malignant neoplasm of breast (principal)
CPT/HCPCS: 77067

== ENCOUNTER 2022-07-15 18:08 | Emergency (ER) | payer OTHER, MEDICARE ==
[2022-07-15 18:27] VITALS: RESP 16; TEMP 98.8
--- NOTE | 2022-07-15 19:41 | XR ---
EXAMINATION TYPE: XR ankle complete RT DATE OF EXAM: 07/15/2022 COMPARISON: NONE HISTORY: Pain TECHNIQUE: 3 views FINDINGS: There is an acute nondisplaced transverse fracture of the distal fibula. There is plantar c alcaneal spurring. Ankle mortise is anatomic. Tibia is intact. IMPRESSION: Acute nondisplaced lateral malleolus fracture. Soft tissue swelling.
--- NOTE | 2022-07-15 19:43 | ED ---
Fall HPI - General Chief Complaint: Fall Stated Complaint: fall - rt leg injury Time Seen by Provider: 07/15/22 18:56 Source: patient, RN notes reviewed Mode of arrival: ambulatory - History of Present Illness Initial Comments: This is a 51-year-old female who presents to the emergency department for a fall. She states that she slipped on the steps and she was going down her back porch. When she fell, her ankle twisted underneath her. She did not hit her head, she denies any loss of consciousness, and she is not taking any blood thinners. States that she heard a crunching noise in the ankle when she fell. She took ibuprofen, which was beneficial to her symptoms. She is still able to ambulate. Denies any fevers, chills, sore throat, cough, dyspnea, chest pain, palpitations, abdominal pain, nausea, vomiting, diarrhea, back pain, or headaches. MD Complaint: fall Location - Extremities: Right: Foot Context: tripped/slipped - Related Data Home Medications Medication Instructions Recorded Confirmed Levothyroxine Sodium [Synthroid] 125 mcg PO HS 09/16/21 09/17/21 Oxybutynin Chloride [Ditropan XL] 10 mg PO HS 09/16/21 09/17/21 Previous Rx's Medication Instructions Recorded Lurasidone [Latuda] 40 mg PO 1800 30 Days tab 09/22/21 Sertraline [Zoloft] 100 mg PO HS 30 Days tab 09/22/21 Allergies Allergy/AdvReac Type Severity Reaction Status Date / Time bee venom protein (honey bee) Allergy Swelling Verified 07/15/22 18:27 @sting site prednisone Allergy Rash/Hives Verified 07/15/22 18:27 morphine AdvReac Nausea & Verified 07/15/22 18:27 Vomiting Oral Steroids Allergy Rash/Hives Uncoded 07/15/22 18:27 Review of Systems ROS Statement: Those systems with pertinent positive or pertinent negative responses have been documented in the HPI. ROS Other: All systems not noted in ROS Statement are negative. Past Medical History Past Medical History: Thyroid Disorder Additional Past Medical History / Comment(s): Hx. hypoglycemia, IBS, cyst on head History of Any Multi-Drug Resistant Organisms: None Reported Past Surgical History: Section Additional Past Surgical History / Comment(s): [place] teeth Past Anesthesia/Blood Transfusion Reactions: No Reported Reaction Past Psychological History: Bipolar, Depression Smoking Status: Never smoker Past Alcohol Use History: Occasional Past Drug Use History: None Reported - Past Family History Father Family Medical History: Coronary Artery Disease (CAD) General Exam Limitations: no limitations General appearance: alert, in no apparent distress Head exam: Present: atraumatic, normocephalic, normal inspection Respiratory exam: Present: normal lung sounds bilaterally. Absent: respiratory distress, wheezes, rales, rhonchi, stridor Cardiovascular Exam: Present: regular rate, normal rhythm, normal heart sounds. Absent: systolic murmur, diastolic murmur, rubs, gallop, clicks Extremities exam: Present: other (Minor swelling to the right lateral malleolus. No tenderness or ecchymosis to the right ankle. Plantar flexion and dorsiflexion does not induce pain. Pain is induced by inversion and eversion. 2+ dorsalis pedis and tibialis posterior pulses.) Neurological exam: Present: alert, oriented X3, CN II-XII intact Psychiatric exam: Present: normal affect, normal mood Skin exam: Present: warm, dry, intact, normal color. Absent: rash Course Vital Signs 07/15/22 07/15/22 18:24 20:38 Temperature 98.8 F Pulse Rate 71 70 Respiratory 16 16 Rate Blood Pressure 130/90 117/81 O2 Sat by Pulse 96 97 Oximetry Procedures - Orthopedic Splinting/Casting Injury #1 Side: right Lower Extremity Injury Location: ankle Lower Extremity Immobilizer: posterior splint, stirrup splint Medical Decision Making - Medical Decision Making This is a 51-year-old female who presents to the emergency department for right ankle pain after a fall. Was pt. sent in by a medical professional or institution? @ -No Did you speak to anyone other than the patient for history? @ -No Did you review nursing and triage notes? @ -Yes, and I agree, it is accurate with regards to the patient's symptoms. Were old charts reviewed? @ -No Differential Diagnosis? @ -Differential Ankle Pain: Fracture, dislocation, sprain, Achilles tear/rupture, this is not meant to be an all-inclusive list. X-rays interpreted by me (1pt min.)? @ -X-ray of the right ankle obtained. My interpretation reveals a nondisplaced lateral malleolus fracture. What testing was considered but not performed? (CT, X-rays, U/S, labs)? Why? @ -None What meds were considered but not given? Why? @ -None Did you discuss the management of the patient with other professionals? @ -No Did you reconcile home meds? @ -No Was smoking cessation discussed for >3mins.? @ -No Was critical care preformed (if so, how long)? @ -No Were there social determinants of health that impacted care today? How? (Homelessness, low income, unemployed, alcoholism, drug addiction, transportation, low edu. Level, literacy, decrease access to med. care, prison, rehab)? @ -No Was there de-escalation of care discussed even if they declined? (Discuss DNR or withdrawal of care, Hospice)? @ -No What co-morbidities impacted this encounter? (DM, HTN, Smoking, COPD, CAD, Cancer, CVA, Hep., AIDS, mental health diagnosis, sleep apnea, morbid obesity)? @ -Morbid obesity Was patient admitted / discharged? @ -Discharged. X-ray of the right ankle obtained revealing a nondisplaced lateral malleolus fracture. Posterior stirrup splint applied. Per the current orthopedic guidelines, with an isolated nondisplaced lateral malleolus fracture, she can weight-bear as tolerated. Patient states that she had no problems bearing weight immediately after the fall and since then. She was able to bear weight while wearing the splint in the emergency department. Instructed her to keep the leg elevated, apply ice for 10-20 minutes every 2-3 hours, and alternate with ibuprofen and Tylenol as needed for pain relief. Signs and symptoms of compartment syndrome reviewed, which would indicate the need for her to return to the emergency department immediately. Information for orthopedic follow-up provided. She is instructed to contact them tomorrow morning for a follow-up appointment. Undiagnosed new problem with uncertain prognosis? @ -None Drug Therapy requiring intensive monitoring for toxicity (Heparin, Nitro, Insulin, Cardizem)? @ -None Were any procedures done? @ -Posterior stirrup splint application to the right leg Diagnosis/symptom? @ -Right lateral malleolus fracture Acute, or Chronic, or Acute on Chronic? @ -Acute Uncomplicated (without systemic symptoms) or Complicated (systemic symptoms)? @ -Uncomplicated Side effects of treatment? @ -None Exacerbation, Progression, or Severe Exacerbation] @ -Not applicable Poses a threat to life or bodily function? @ -May impact her ability to walk depending on her pain level. Return precautions reviewed in depth, the patient is instructed to return to the emergency department with any new, worsening, or concerning symptoms. Patient verbalized understanding. This case was discussed in detail with the attending ED physician, Dr. Villa. Presentation, findings, and treatment plan discussed in detail as well. - Radiology Data Radiology results: report reviewed, image reviewed Disposition Clinical Impression: Fracture of right ankle, lateral malleolus Disposition: HOME SELF-CARE Instructions (If sedation given, give patient instructions): Ankle Fracture (ED), Splint Care (ED), Ankle Stirrup Splint (ED) Additional Instructions: Return to the emergency department with any new, worsening, or concerning symptoms. Alternate with ibuprofen and Tylenol as needed for pain relief. Apply ice for 10-20 minutes every 2-3 hours. Contact orthopedics as listed below first thing tomorrow morning for a follow-up appointment. Follow up with your primary care provider in 1-2 days. Is patient prescribed a controlled substance at d/c from ED?: No Referrals: Michael Little DO [Primary Care Provider] - 1-2 days Jonathan Astudillo MD [STAFF PHYSICIAN] - 1-2 days
[2022-07-15 20:39] VITALS: BP 117/81; PULSE 70
== END 2022-07-15 20:39 | disposition home or self-care (01) ==
LOC: EC 18:08
DX: S82.64XA Nondisplaced fracture of lateral malleolus of right fibula, initial encounter for closed fracture (principal); E66.01 Morbid (severe) obesity due to excess calories; E03.9 Hypothyroidism, unspecified; Z79.890 Hormone replacement therapy; Z91.030 Bee allergy status; Z88.6 Allergy status to analgesic agent; Z88.8 Allergy status to other drugs, medicaments and biological substances; Z68.38 Body mass index [BMI] 38.0-38.9, adult; W01.0XXA Fall on same level from slipping, tripping and stumbling without subsequent striking against object, initial encounter; X50.1XXA Overexertion from prolonged static or awkward postures, initial encounter; Y92.009 Unspecified place in unspecified non-institutional (private) residence as the place of occurrence of the external cause
CPT/HCPCS: 29515; 99284

== ENCOUNTER → 2023-05-31 | Outpatient (CLI) | payer MEDICARE, OTHER ==
--- NOTE | 2023-06-02 08:41 | MM ---
Reason for Exam: Screening (asymptomatic). Last mammogram was performed 1 year(s) and 2 month(s) ago. Patient History: Menarche at age 13. First Full-Term at age 29. Late child-bearing (after 28). Hormonal Contraceptives for 16 years from age 19 until age 36. Risk Values: Liyah 5 year model risk: 1.4%. NCI Lifetime model risk: 10.4%. Prior Study Comparison: 01/05/2020 Bilateral Screening Mammogram, [facility]. 02/10/2021 Bilateral Screening Mammogram, [facility]. 03/27/2022 Bilateral MG screening mammo w CAD, [facility]. Tissue Density: There are scattered fibroglandular densities. Findings: Analyzed By CAD. There is no suspicious group of microcalcifications or new suspicious mass in either breast. Overall Assessment: Negative, BI-RAD 1 Management: Screening Mammogram of both breasts in 1 year. . Patient should continue monthly self-breast exams. A clinical breast exam by your physician is recommended on an annual basis. This exam should not preclude additional follow-up of suspicious palpable abnormalities. Note on Liyah scores and lifetime risk: 1. A Liyah score greater than 3% is considered moderate risk. If this is the case, consider specialist referral to assess eligibility for a risk reducing agent. 2. If overall lifetime risk for the development of breast cancer is 20% or higher, the patient may qualify for future screening with alternating mammogram and breast MRI. Electronically signed and approved by: Jameel De Los Santos M.D. Radiologis
== END | disposition home or self-care (01) ==
LOC: RADMAMWWP 14:53
PROVIDERS: ATTEND Family Medicine
DX: Z12.31 Encounter for screening mammogram for malignant neoplasm of breast (principal)
CPT/HCPCS: 77063; 77067